=== PATIENT | female | born 1935 | race Caucasian/White ===

== ENCOUNTER 2020-02-28 19:49 | Emergency (ER) | payer BC, MEDICARE, OTHER ==
[2020-02-28] MEDS ORDERED: Lidocaine 1% 20 ML MDV INFILT ONE (19:50)
--- NOTE | 2020-02-28 20:29 | EDM.PDOC ---
ED HPI GENERAL MEDICAL PROBLEM - General Chief Complaint: Head Injury Stated Complaint: FELL & HIT HEAD Time Seen by Provider: 02/28/20 20:16 Source of Information: Reports: Patient, Family History Limitations: Reports: No Limitations - History of Present Illness INITIAL COMMENTS - FREE TEXT/NARRATIVE: Patient lost her balance and fell while carrying a jug of water. No LOC. Denies headache or neck pain. No other injuries. Last Tetanus vaccine 06/2012. Onset: Today Duration: Hour(s): (1) Location: Reports: Head Severity: Mild - Related Data Allergies Allergy/AdvReac Type Severity Reaction Status Date / Time No Known Allergies Allergy Verified 02/28/20 19:52 Home Meds: Home Meds Carbidopa/Levodopa [Carbidopa-Levodopa 25-100 Tab] 100 cap PO TID 02/28/20 [History] Past Medical History Cardiovascular History: Reports: High Cholesterol Neurological History: Reports: Neuropathy, Diabetic, Parkinson's Endocrine/Metabolic History: Reports: Diabetes, Type II Social & Family History - Tobacco Use Smoking Status *Q: Never Smoker ED ROS GENERAL - Review of Systems Review Of Systems: Comprehensive ROS is negative, except as noted in HPI. ED EXAM, HEAD INJURY - Physical Exam Exam: See Below Exam Limited By: No Limitations General Appearance: Alert, WD/WN, No Apparent Distress Head: Other (4 cm occipital scalp laceration) Eyes: Bilateral Eye: EOMI, PERRL Ears: Normal External Exam Throat/Mouth: No Airway Compromise Neck: Non-Tender Respiratory: No Respiratory Distress, Lungs Clear, Normal Breath Sounds Cardiovascular: Regular Rate, Rhythm, No Murmur GI/Abdominal Exam: Non-Tender Back Exam: Full Range of Motion Extremities: Normal Range of Motion Neurologic: No Motor/Sensory Deficits, Alert - [place] Coma Score Best Eye Response (Vijaya): (4) Open Spontaneously Best Verbal Response ([place]): (5) Oriented Best Motor Response ([place]): (6) Obeys Commands Vijaya Total: 15 ED LACERATION/WOUND & MATTHEW PROC - Laceration/Wound Repair Head Lac/wound length in cm: 4 Appearance: Subcutaneous Distal NVT: Neuro & Vascular Intact Anesthetic Type: Local Local Anesthesia - Lidocaine (Xylocaine): 1% Plain Local Anesthetic Volume: 4cc Skin Prep: Chlorhexidine (Hibiciens), Saline Saline irrigation (cc's): 20 Exploration/Debridement/Repair: No Foreign Material Found Closed with: Railroad # of Sutures: 9 Drain Placement: No Sterile Dressing Applied: Nurse Complications: No Course - Vital Signs Last Recorded V/S: Last Vital Signs Temp 37.1 C 02/28/20 19:57 Pulse 69 02/28/20 19:57 Resp 18 02/28/20 19:57 BP 183/77 H 02/28/20 19:57 Pulse Ox 98 02/28/20 19:57 - Orders/Labs/Meds Orders: Active Orders 24 hr Category Date Time Status C-Spine [Cervical Spine wo Cont] [CT] Stat Exams 02/28/20 20:02 Taken Head wo Cont [CT] Stat Exams 02/28/20 20:02 Taken - Radiology Interpretation Free Text/Narrative:: Study: CT Head -02/28/2020 8:46:41 PM Ordering Physician: Leonel Final Report: INDICATION: Trauma COMPARISON: None TECHNIQUE: CT examination of the head was performed as axial sections without intravenous contrast. Images were obtained from the vertex of the skull through the skull base. Please note that all CT scans at this facility use dose modulation, iterative reconstruction, and/or weight-based dosing when appropriate to reduce radiation dose to as low as reasonably achievable. FINDINGS: The brain shows no sign of mass lesion, mass effect, hemorrhage, or edema. There are involutional changes. There is mild cortical atrophy and there is mild white matter disease. There is no hydrocephalus. The visualized portions of the orbits are normal in appearance. The osseous structures are normal in appearance with no sign of abnormality in the skull base or calvarium. There is a subcutaneous hematoma in the right parieto-occipital area. IMPRESSION: Involutional changes. No acute intracranial posttraumatic findings. Subcutaneous hematoma in the right parieto-occipital area Please note that all CT scans at this facility use dose modulation, iterative reconstruction, and/or weight-based dosing when appropriate to reduce radiation dose to as low as reasonably achievable. Dictated by Donovan Hampton MD @ Feb 28 2020 8:56PM (Electronic Signature) Study: CT Spine Cervical -02/28/2020 8:46:20 PM Ordering Physician: Leonel Final Report: INDICATION: Trauma TECHNIQUE: CT cervical spine without contrast. COMPARISON: None FINDINGS: Vertebral alignment: Alignment is normal. Vertebrae: There are no fractures or suspicious bony lesions. Discs and facet joints: There are moderate to severe multilevel degenerative disc and facet changes Extraspinal findings: Paraspinous soft tissues are unremarkable. IMPRESSION: 1. No sign of acute injury. 2. Multilevel degenerative spondylosis. Please note that all CT scans at this facility use dose modulation, iterative reconstruction, and/or weight-based dosing when appropriate to reduce radiation dose to as low as reasonably achievable. Dictated by Donovan Hampton MD @ Feb 28 2020 8:59PM (Electronic Signature) Departure - Departure Time of Disposition: 21:01 Disposition: Home, Self-Care 01 Condition: Good Clinical Impression: Minor head injury Qualifiers: Encounter type: initial encounter Qualified Code(s): S09.90XA - Unspecified injury of head, initial encounter Occipital scalp laceration Qualifiers: Encounter type: initial encounter Qualified Code(s): S01.01XA - Laceration without foreign body of scalp, initial encounter - Discharge Information *PRESCRIPTION DRUG MONITORING PROGRAM REVIEWED*: No *COPY OF PRESCRIPTION DRUG MONITORING REPORT IN PATIENT ASHLEE: Not Applicable Instructions: Laceration Care, Adult, [id number], Sutures, Railroad, or Adhesive Wound Closure, [id number], Head Injury, Adult, [id number] Referrals: Jaylin Fall PA [Primary Care Provider] - 1 Week Forms: ED Department Discharge Additional Instructions: Follow up in 7 days for staple removal. Return to the ER with symptoms or signs of infection, or if you develop a headache or vomiting. Sepsis Event Note (ED) - Evaluation Sepsis Screening Result: No Definite Risk - Focused Exam Vital Signs: Vital Signs Temp Pulse Resp BP Pulse Ox 02/28/20 19:57 37.1 C 69 18 183/77 H 98 - My Orders Last 24 Hours: My Active Orders 02/28/20 20:02 C-Spine [Cervical Spine wo Cont] [CT] Stat Head wo Cont [CT] Stat - Assessment/Plan Last 24 Hours: My Active Orders 02/28/20 20:02 C-Spine [Cervical Spine wo Cont] [CT] Stat Head wo Cont [CT] Stat
== END 2020-02-28 21:30 | disposition home or self-care (01) ==
LOC: FB.ED 19:49
DX: S01.01XA Laceration without foreign body of scalp, initial encounter (principal); E11.40 Type 2 diabetes mellitus with diabetic neuropathy, unspecified; W01.10XA Fall on same level from slipping, tripping and stumbling with subsequent striking against unspecified object, initial encounter
CPT/HCPCS: 12002; 70450; 72125; 99283; 99283-25; J2001

== ENCOUNTER 2020-03-04 07:20 | Inpatient (IN) | payer MEDICARE, OTHER ==
--- NOTE | 2020-03-04 07:57 | EDM.PDOC ---
ED HPI GENERAL MEDICAL PROBLEM - General Chief Complaint: General Stated Complaint: WEAKNESS Time Seen by Provider: 03/04/20 07:35 Source of Information: Reports: Patient, EMS History Limitations: Reports: No Limitations - History of Present Illness INITIAL COMMENTS - FREE TEXT/NARRATIVE: Brought in by EMS from home . states she was feeling so weak at home W finding it difficult t get up and walk, called family and none answered so she called EMS Was seen in the hospital 3 warren ago for fall and pain in the hip Denies any pain in the hips but has weakness in the lower extremities Onset: Today Onset Date: 03/04/20 Duration: Hour(s):, Getting Worse Location: Reports: Lower Extremity, Right Quality: Reports: Ache, Dull Severity: Moderate Improves with: Reports: None Worsens with: Reports: Movement Context: Reports: Activity. Denies: Trauma Associated Symptoms: Reports: Weakness. Denies: Confusion, Fever/Chills, Head aches, Nausea/Vomiting, Shortness of Breath - Related Data Allergies Allergy/AdvReac Type Severity Reaction Status Date / Time No Known Allergies Allergy Verified 02/28/20 19:52 Home Meds: Home Meds Carbidopa/Levodopa [Carbidopa-Levodopa 25-100 Tab] 1 cap PO TID 02/28/20 [History] Tolterodine Tartrate [Tolterodine Tartrate ER] 2 mg PO DAILY 02/28/20 [History] Past Medical History HEENT History: Reports: Cataract Cardiovascular History: Reports: High Cholesterol Respiratory History: Reports: None Genitourinary History: Reports: None Musculoskeletal History: Reports: Other (See Below) Other Musculoskeletal History: trochanteric bursitis of both hips 09/30/2015 Neurological History: Reports: Neuropathy, Diabetic, Parkinson's Psychiatric History: Reports: None Endocrine/Metabolic History: Reports: Diabetes, Type II Hematologic History: Reports: None Immunologic History: Reports: None Oncologic (Cancer) History: Reports: None Dermatologic History: Reports: None - Past Surgical History Head Surgeries/Procedures: Reports: None HEENT Surgical History: Reports: Cataract Surgery GI Surgical History: Reports: Colonoscopy Social & Family History - Tobacco Use Smoking Status *Q: Never Smoker ED ROS GENERAL - Review of Systems Review Of Systems: See Below Constitutional: Reports: No Symptoms. Denies: Fever, Chills, Malaise, Weakness, Fatigue HEENT: Denies: Ear Discharge, Ear Pain Respiratory: Denies: Shortness of Breath, Cough, Sputum Cardiovascular: Reports: Lightheadedness, Orthopnea. Denies: Chest Pain, Dyspnea on Exertion, Edema Endocrine: Reports: No Symptoms GI/Abdominal: Reports: No Symptoms : Reports: No Symptoms Musculoskeletal: Denies: Back Pain, Hand Pain, Leg Pain, Joint Pain, Joint Swelling Skin: Denies: No Symptoms Neurological: Reports: Confusion, Dizziness, Headache Psychiatric: Reports: No Symptoms Hematologic/Lymphatic: Reports: No Symptoms Immunologic: Reports: No Symptoms ED EXAM, GENERAL - Physical Exam Exam: See Below Exam Limited By: No Limitations General Appearance: Alert, WD/WN, No Apparent Distress Eye Exam: Bilateral Eye: Abnormal EOM, EOMI Ears: Normal External Exam Nose: Normal Inspection Throat/Mouth: Normal Inspection Head: Atraumatic, Normocephalic Neck: Supple, Non-Tender, Limited Range of Motion Respiratory/Chest: No Respiratory Distress, Lungs Clear, Normal Breath Sounds Cardiovascular: Normal Peripheral Pulses, Regular Rate, Rhythm GI/Abdominal: Normal Bowel Sounds, Soft, Non-Tender Back Exam: Normal Inspection, Full Range of Motion Extremities: Normal Inspection, Normal Range of Motion, Increased Warmth. No: Limited Range of Motion Neurological: Memory Loss Remote Events, Memory Loss Recent Events, Abnormal Gait. No: Normal Gait Psychiatric: Normal Affect, Normal Mood Skin Exam: Dry, Intact Lymphatic: No Adenopathy Course - Vital Signs Last Recorded V/S: Last Vital Signs Temp 36.4 C 03/04/20 11:47 Pulse 63 03/04/20 11:47 Resp 18 03/04/20 11:47 BP 150/77 H 03/04/20 11:47 Pulse Ox 95 03/04/20 11:47 - Orders/Labs/Meds Orders: Active Orders 24 hr Category Date Time Status Patient Status Manage Transfer [TRANSFER] Routine ADT 03/04/20 09:51 Active Patient Status [ADT] Routine ADT 03/04/20 12:00 Active Ambulate [RC] ASDIRECTED Care 03/04/20 11:59 Active Intake and Output [RC] QSHIFT Care 03/04/20 12:00 Active Oxygen Therapy [RC] PRN Care 03/04/20 12:00 Active Up With Assistance [RC] ASDIRECTED Care 03/04/20 11:59 Active Up to Chair [RC] ASDIRECTED Care 03/04/20 11:59 Active VTE/DVT Education [RC] Per Unit Routine Care 03/04/20 12:00 Active Vital Signs [RC] Q4H Care 03/04/20 12:00 Active OT Evaluation and Treatment [CONS] Routine Cons 03/04/20 11:59 Active PT Evaluation and Treatment [CONS] Routine Cons 03/04/20 11:59 Active Head wo Cont [CT] Stat Exams 03/04/20 07:46 Taken CULTURE URINE [RM] Stat Lab 03/04/20 08:35 Received Enoxaparin [Lovenox] Med 03/04/20 12:00 Active 30 mg SUBCUT Q24H Sodium Chloride 0.9% [Normal Saline] 1,000 ml Med 03/04/20 08:00 Active IV ASDIRECTED Resuscitation Status Routine Resus Stat 03/04/20 09:55 Ordered Medication Orders Carbidopa/Levodopa (Sinemet 25-100 Mg) 1 tab PO TID NISHA Enoxaparin Sodium (Lovenox) 30 mg SUBCUT Q24H NISHA Sodium Chloride (Normal Saline) 1,000 mls @ 150 mls/hr IV ASDIRECTED NISHA Last Admin: 03/04/20 08:05 Dose: 150 mls/hr Documented by: JOSE Labs: Laboratory Tests 03/04/20 03/04/20 03/04/20 Range/Units 08:10 08:10 08:10 WBC 6.5 (4.5-12.0) X10-3/uL RBC 4.71 (3.23-5.20) x10(6)uL Hgb 13.9 (11.5-15.5) g/dL Hct 42.9 (30.0-51.3) % MCV 91.1 (80-96) fL MCH 29.6 (27.7-33.6) pg MCHC 32.5 (32.2-35.4) g/dL RDW 12.7 (11.5-15.5) % Plt Count 251 (125-369) X10(3)uL MPV 7.6 (7.4-10.4) fL Neut % (Auto) 68.7 (46-82) % Lymph % (Auto) 22.5 (13-37) % [place] % (Auto) 6.2 (4-12) % Eos % (Auto) 2 (1.0-5.0) % Baso % (Auto) 1 (0-2) % Neut # (Auto) 4.5 (1.6-8.3) # Lymph # (Auto) 1.5 (0.6-5.0) # [place] # (Auto) 0.4 (0.0-1.3) # Eos # (Auto) 0.1 (0.0-0.8) # Baso # (Auto) 0.0 (0.0-0.2) # Sodium 140 (135-145) mmol/L Potassium 4.2 (3.5-5.3) mmol/L Chloride 103 (100-110) mmol/L Carbon Dioxide 28 (21-32) mmol/L BUN 13 (7-18) mg/dL Creatinine 0.9 (0.55-1.02) mg/dL Est Cr Clr Drug Dosing TNP Estimated GFR (MDRD) 60 (>60) BUN/Creatinine Ratio 14.4 (9-20) Glucose 185 H (80-116) mg/dL Calcium 9.3 (8.6-10.2) mg/dL Total Bilirubin 0.7 (0.1-1.3) mg/dL AST 19 (5-25) IU/L ALT 31 (12-36) U/L Alkaline Phosphatase 111 (56-112) IU/L NT-Pro-B Natriuret Pep (<=450) pg/mL Total Protein 6.8 (6.0-8.0) g/dL Albumin 3.5 (3.2-4.6) g/dL Globulin 3.3 g/dL Albumin/Globulin Ratio 1.1 Vitamin B12 1030 H (193-986) pg/mL TSH, Ultra Sensitive 2.25 (0.36-3.74) IU/mL Urine Color (YELLOW) Urine Appearance (CLEAR) Urine pH (5.0-6.5) Ur Specific [place] (1.010-1.025) Urine Protein (NEGATIVE) mg/dL Urine Glucose (UA) (NORMAL) mg/dL Urine Ketones (NEGATIVE) mg/dL Urine Occult Blood (NEGATIVE) Urine Nitrite (NEGATIVE) Urine Bilirubin (NEGATIVE) Urine Urobilinogen (NEGATIVE) mg/dL Ur Leukocyte Esterase (NEGATIVE) Urine RBC (0-5) Urine WBC (0-5) Ur Squamous Epith Cells (NS,R,O) Urine Bacteria (NS) SARS Virus RNA (PCR) (NEGATIVE) 03/04/20 03/04/20 03/04/20 Range/Units 08:10 08:35 09:40 WBC (4.5-12.0) X10-3/uL RBC (3.23-5.20) x10(6)uL Hgb (11.5-15.5) g/dL Hct (30.0-51.3) % MCV (80-96) fL MCH (27.7-33.6) pg MCHC (32.2-35.4) g/dL RDW (11.5-15.5) % Plt Count (125-369) X10(3)uL MPV (7.4-10.4) fL Neut % (Auto) (46-82) % Lymph % (Auto) (13-37) % [place] % (Auto) (4-12) % Eos % (Auto) (1.0-5.0) % Baso % (Auto) (0-2) % Neut # (Auto) (1.6-8.3) # Lymph # (Auto) (0.6-5.0) # [place] # (Auto) (0.0-1.3) # Eos # (Auto) (0.0-0.8) # Baso # (Auto) (0.0-0.2) # Sodium (135-145) mmol/L Potassium (3.5-5.3) mmol/L Chloride (100-110) mmol/L Carbon Dioxide (21-32) mmol/L BUN (7-18) mg/dL Creatinine (0.55-1.02) mg/dL Est Cr Clr Drug Dosing Estimated GFR (MDRD) (>60) BUN/Creatinine Ratio (9-20) Glucose (80-116) mg/dL Calcium (8.6-10.2) mg/dL Total Bilirubin (0.1-1.3) mg/dL AST (5-25) IU/L ALT (12-36) U/L Alkaline Phosphatase (56-112) IU/L NT-Pro-B Natriuret Pep 131 (<=450) pg/mL Total Protein (6.0-8.0) g/dL Albumin (3.2-4.6) g/dL Globulin g/dL Albumin/Globulin Ratio Vitamin B12 (193-986) pg/mL TSH, Ultra Sensitive (0.36-3.74) IU/mL Urine Color Yellow (YELLOW) Urine Appearance Slightly cloudy (CLEAR) Urine pH 6.5 (5.0-6.5) Ur Specific [place] 1.015 (1.010-1.025) Urine Protein Negative (NEGATIVE) mg/dL Urine Glucose (UA) Normal (NORMAL) mg/dL Urine Ketones Negative (NEGATIVE) mg/dL Urine Occult Blood Negative (NEGATIVE) Urine Nitrite Negative (NEGATIVE) Urine Bilirubin Negative (NEGATIVE) Urine Urobilinogen Normal (NEGATIVE) mg/dL Ur Leukocyte Esterase Negative (NEGATIVE) Urine RBC 0-5 (0-5) Urine WBC 0-5 (0-5) Ur Squamous Epith Cells Occasional (NS,R,O) Urine Bacteria Many H (NS) SARS Virus RNA (PCR) Negative (NEGATIVE) Meds: Medications Generic Name Dose Route Start Last Admin Trade Name Freq PRN Reason Stop Dose Admin Carbidopa/Levodopa 1 tab 03/04/20 14:00 Sinemet 25-100 Mg PO TID [facility] Enoxaparin Sodium 30 mg 03/04/20 12:00 Lovenox SUBCUT Q24H [facility] Sodium Chloride 1,000 mls @ 150 mls/hr 03/04/20 08:00 03/04/20 08:05 Normal Saline IV 150 mls/hr ASDIRECTED [facility] Administration - Re-Assessments/Exams Free Text/Narrative Re-Assessment/Exam: 03/04/20 12:23 pt reassessed and recommended for admission Departure - Departure Time of Disposition: 11:45 Disposition: Admitted As Inpatient 68 Clinical Impression: Generalized weakness, Abnormality of gait and mobility Minor head injury Qualifiers: Encounter type: initial encounter Qualified Code(s): S09.90XA - Unspecified injury of head, initial encounter - Discharge Information *PRESCRIPTION DRUG MONITORING PROGRAM REVIEWED*: Not Applicable *COPY OF PRESCRIPTION DRUG MONITORING REPORT IN PATIENT ASHLEE: Not Applicable Sepsis Event Note (ED) - Evaluation Sepsis Screening Result: No Definite Risk - Focused Exam Vital Signs: Vital Signs Temp Pulse Resp BP Pulse Ox 03/04/20 11:47 36.4 C 63 18 150/77 H 95 03/04/20 07:27 36.5 C 62 18 161/66 H 95 - My Orders Last 24 Hours: My Active Orders 03/04/20 07:46 Head wo Cont [CT] Stat 03/04/20 08:00 Sodium Chloride 0.9% [Normal Saline] 1,000 ml IV ASDIRECTED 03/04/20 08:35 CULTURE URINE [RM] Stat 03/04/20 09:51 Patient Status Manage Transfer [TRANSFER] Routine 03/04/20 09:55 Resuscitation Status Routine - Assessment/Plan Last 24 Hours: My Active Orders 03/04/20 07:46 Head wo Cont [CT] Stat 03/04/20 08:00 Sodium Chloride 0.9% [Normal Saline] 1,000 ml IV ASDIRECTED 03/04/20 08:35 CULTURE URINE [RM] Stat 03/04/20 09:51 Patient Status Manage Transfer [TRANSFER] Routine 03/04/20 09:55 Resuscitation Status Routine
[2020-03-04] MEDS: Sodium Chloride 0.9% 1,000 ML IV SCH ×3 (08:05→22:36)
[2020-03-04] MEDS: Carbidopa/Levodopa 25-100 MG Tab PO SCH ×2 (13:40→20:43)
[2020-03-04] MEDS: Enoxaparin 30 MG/0.3 ML Syringe SUBCUT SCH (13:40)
--- NOTE | 2020-03-04 16:31 | HP ---
ADMISSION DATE: 03/04/2020 REASON FOR ADMISSION: Weakness, recurrent falls. HISTORY OF PRESENT ILLNESS: Shannon Coyne is an 85-year-old female, admitted through [facility]. Had been seen last Monday for a fall and struck her head on the stool. Progressive weakness and disability. Does have Parkinson's, under medical treatment. Last couple of days though more troublesome, been sitting, inactive, unable to walk, unable to do the things she needs to be self-sufficient. Lives with her in their own home, though stated to have great difficulties, had a stroke and an HI, but still a more aligned and is self- sufficient enough to be alone. Weakness was the problematic issue. Was transferred by EMS. PRESENT HOME MEDICATIONS: Include carbidopa-levodopa 25-100 one p.o. b.i.d. ALLERGIES: No known allergies. PAST MEDICAL HISTORY: Significant for previous vein surgery. She is 7, postmenopausal female. Chronic illnesses include Parkinson's only and problematic bladder control issues. No other major operative procedures, hospitalizations, unusual childhood diseases, major injuries, or fractures. SOCIAL HISTORY: Lives with her independently in their home. 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 Has had 5 children, 1 daughter of leukemia, 1 stillborn male child. Three living children. Nonsmoker. No alcohol. No illicit drug use. No vaping. No chewing. Alcohol absent. FAMILY HISTORY: Noncontributory. REVIEW OF SYSTEMS: CONSTITUTIONAL: General weakness and fatigue. EYES: Sees well. Corrective eyeglasses. EARS: Hears well, no implication. OROPHARYNX: Intact dentition. No loose teeth. CARDIOVASCULAR: No chest pain, palpitations, syncope. RESPIRATORY: No chronic cough. GASTROINTESTINAL: Regular predictable stools. No blood in stools. GENITOURINARY: Bladder control an issue. No blood in urine. ORTHOPEDIC: Generalized joint complaints. NEUROLOGIC: Presenting symptoms. SKIN: No lesions, eruptions, or moles. ENDOCRINE: No excessive thirst or urination. ALLERGIES: None. PHYSICAL EXAMINATION: VITAL SIGNS: 36.5, 62, 161/66, 18, and 95. GENERAL: Soft spoken, a bit dysarthric suddenly, and unintelligible speech. HEENT: Conjunctivae clear. Bright tympanic membranes. Clear nasal discharge. Mouth and oropharynx clear. Tongue midline. Good gag reflex. NECK: Benign. Thyroid small. CHEST: On auscultation, clear in all lung duggan. HEART: On auscultation, no ectopy or murmur. BREASTS: Deferred. ABDOMEN: Benign. No surgical scars. No hepatosplenomegaly. GENITOURINARY AND RECTAL: Deferred. EXTREMITIES: Well perfused. SKIN: No eruptions or moles. Mild varicosities. LABORATORY STUDIES: White count 6500, hemoglobin 13.9, normal indices, platelets 251,000. Electrolytes were satisfactory, random glucose 185. Liver enzymes satisfactory. Vitamin B12 of 10.30. TSH 2.25. Urinalysis was clear. ASSESSMENT: Complicated weakness, sequelae of Parkinson's. PLAN: We will obtain some other laboratory tests to assess well-being. IV fluids and intervention, expectations from there. PT, OT consultation. Medications were reviewed and appropriate, continued as timely. /[id number] EPHRAIM/TIMOTHY
[2020-03-04] MEDS ORDERED: Carbidopa/Levodopa 25-100 MG Tab PO SCH (16:47)
[2020-03-04] MEDS: Tolterodine 2 MG Cap.ER PO SCH (20:43)
[2020-03-05] MEDS: Sodium Chloride 0.9% 1,000 ML IV SCH (05:20)
[2020-03-05] MEDS: Carbidopa/Levodopa 25-100 MG Tab PO SCH ×3 (08:01→20:06)
[2020-03-05] MEDS: Tolterodine 2 MG Cap.ER PO SCH (08:01)
--- NOTE | 2020-03-05 11:29 | PN ---
DATE SEEN: 03/05/2020 SUBJECTIVE: Shannon Coyne is an 85-year-old female admitted with just general malaise. Feel likely exacerbation of her Parkinson's. Diagnostic studies unremarkable. CBC unremarkable. Sedimentation rate 5 and glucose 175. COVID negative. Treatment for Parkinson's is very limited, Sinemet only. OBJECTIVE: VITAL SIGNS: 36.4, 70, 173/70, 18, and 96%. GENERAL: Appears comfortable. Speech is a bit gaited and dysarthric. NEUROLOGIC: No focal neurological findings. EXTREMITIES: A bit of tightness to range of motion of her extremities. Gait was not tested. CHEST: Clear in all lung duggan. HEART: No ectopy or murmur. ABDOMEN: Benign. ASSESSMENT: Complicated weakness. PLAN: PT/OT, intervention and care, may need further management in addition to her Parkinson's disease. /[id number] EPHRAIM/TIMOTHY BATES
[2020-03-05] MEDS: Enoxaparin 30 MG/0.3 ML Syringe SUBCUT SCH (12:05)
[2020-03-06] MEDS: Carbidopa/Levodopa 25-100 MG Tab PO SCH (08:00)
[2020-03-06] MEDS: Tolterodine 2 MG Cap.ER PO SCH (08:01)
--- NOTE | 2020-03-06 11:04 | DISCH ---
DISCHARGE DATE: 03/06/2020 REASON FOR ADMISSION: 1. Fall. 2. Weakness. 3. Parkinson disease. 4. Female incontinence. BRIEF HISTORY: An 85-year-old who was brought in after she complains of feeling weak. She had previously fallen and sustained a laceration to the scalp. CT of the head was negative for any intracranial bleed, but she was too weak to return home. She spent 2 days here and has regained her strength and she is ready to return home today. She will go home on her usual home prescriptions of Detrol LA 2 mg daily and carbidopa 1 tablet t.i.d. She will go home with home health and follow up with PCP next week. /[id number] RADHA/TIMOTHY
[2020-03-09 20:10] LABS: A/G RATIO 1.3 (0.7-1.7); ALBUMIN 3.4 g/dL (2.9-4.4); ALPHA-1-GLOBULIN 0.2 g/dL (0.0-0.4); ALPHA-2-GLOBULIN 0.8 g/dL (0.4-1.0); GAMMA GLOBULIN 0.7 g/dL (0.4-1.8); GLOBULIN, TOTAL 2.7 g/dL (2.2-3.9); M-SPIKE Not Observed g/dL (Not Observed); PROTEIN, TOTAL, SERUM 6.1 g/dL (6.0-8.5)
== END 2020-03-06 11:25 | disposition home health service (06) | DRG 948 ==
LOC: FB.ED 07:20 → FB.MS 09:51 → INTOOBSV 12:00 → OBSVTOIN 12:00
PROVIDERS: ADMIT Family Medicine; ATTEND Family Medicine
DX: R53.1 Weakness (principal); R63.1 Polydipsia; R26.9 Unspecified abnormalities of gait and mobility; S01.01XA Laceration without foreign body of scalp, initial encounter; S09.90XD Unspecified injury of head, subsequent encounter; E11.42 Type 2 diabetes mellitus with diabetic polyneuropathy; W19.XXXD Unspecified fall, subsequent encounter; R32 Unspecified urinary incontinence; R29.6 Repeated falls; G20 Parkinson's disease; W19.XXXA Unspecified fall, initial encounter; E78.00 Pure hypercholesterolemia, unspecified; E11.40 Type 2 diabetes mellitus with diabetic neuropathy, unspecified; Z98.49 Cataract extraction status, unspecified eye; Z79.899 Other long term (current) drug therapy; Z20.828 Contact with and (suspected) exposure to other viral communicable diseases
CPT/HCPCS: 70450; 96360; 96361; 99285; 99283; 85025; 85651; 81001; 36415; 80053; 82550; 83880; 82607; 86140; 84443; 87086; J7030; U0002; G0378; 82962; 84165; 97161-GP; 97165-GO; 99221; 99231; 99238; A9270-GY; J1650

== ENCOUNTER 2020-04-08 12:18 | Inpatient (IN) | payer MEDICARE, OTHER ==
[2020-04-08] MEDS: Sodium Chloride 0.9% 10 ML Syringe FLUSH PRN (12:45)
[2020-04-08] MEDS ORDERED: Sodium Chloride 0.9% 1,000 ML IV SCH (14:15)
--- NOTE | 2020-04-08 15:21 | CT ---
INDICATION: Fall, injury. CT HEAD WITHOUT CONTRAST: Spiral 2.5 mm axial sections were obtained through the brain without contrast with sagittal, coronal and axial reconstructions 04/08/20 and compared with 03/04/20. Total exam DLP was 1322.30 mGy-cm. No cranial fracture site is noted. Paranasal sinuses and mastoid air cells are well aerated. The orbits appear to be intact. Internal carotid artery calcifications are again noted. No shift of midline structures is seen. White matter changes are again noted compatible with microvascular disease, although other cause of leukoencephalopathy cannot be excluded. A definite acute intracranial abnormality was not identified - no bleeding site or hematoma was seen. Ventricles are prominent compatible with central atrophy. Cortical sulci are fairly normal for age. IMPRESSION: 1. Cerebrovascular disease with arterial calcifications and a mild degree of microvascular disease type changes in the white matter. 2. No acute intracranial abnormality. 3. Central atrophy. Report was called to Dr. Barron at 1330 hours. [facility]
--- NOTE | 2020-04-08 15:28 | CR ---
INDICATION: Fall, left hip pain. LEFT HIP AND PELVIS: Frontal view of the pelvis with frontal and lateral views of the left hip were obtained 04/08/20 - no comparison. Somewhat demineralized appearance suggests osteoporosis - correlate clinically. Mild hypertrophic degenerative changes noted at the right hip joint with very minimal loss of craniolateral joint space at the right hip joint space. Sacroiliac joints appear to be intact with mild degenerative change at the right sacroiliac joint. Degenerative changes, disk disease and scoliosis are noted in the visualized lumbosacral spine. An acute fracture or dislocation was not identified with special attention to the left hip. IMPRESSION: 1. No acute fracture or dislocation. 2. Demineralization compatible with osteoporosis. 3. Osteoarthritis as noted above. Report called to Dr. Barron at 1330 hours. [facility]
--- NOTE | 2020-04-08 15:31 | CR ---
INDICATION: Fall, pain left elbow. LEFT ELBOW: Three views of the left elbow were obtained 04/08/20 - no comparisons. There are some minimal degenerative changes at the medial elbow joint compartment. Joint spaces appear to be well maintained at the elbow. An acute fracture, dislocation, or other acute bone or joint abnormality, was not identified. Report called to Dr. Barron at 1332 hours. [facility]
--- NOTE | 2020-04-08 15:36 | EDM.PDOC ---
ED HPI GENERAL MEDICAL PROBLEM - General Chief Complaint: Upper Extremity Injury/Pain Stated Complaint: DIZZYNESS, FALL Time Seen by Provider: 04/08/20 12:25 Source of Information: Reports: Patient, Family History Limitations: Reports: Other (dementia) - History of Present Illness INITIAL COMMENTS - FREE TEXT/NARRATIVE: Patient presented to the ED via EMS because of a recent fall. Patient was feeling weak, her legs gave out and fell on the bath room. She was unable to get up on her own. She c/o left RUE and left hip pain. There is no LOC after the fall. There is no chest pain,N/V/D, no cough/cold, fever or chills. - Related Data Allergies Allergy/AdvReac Type Severity Reaction Status Date / Time No Known Allergies Allergy Verified 02/28/20 19:52 Home Meds: Home Meds Carbidopa/Levodopa [Carbidopa-Levodopa 25-100 Tab] 1 cap PO TID 02/28/20 [History] Tolterodine Tartrate [Tolterodine Tartrate ER] 2 mg PO DAILY 02/28/20 [History] Past Medical History HEENT History: Reports: Cataract Cardiovascular History: Reports: High Cholesterol Respiratory History: Reports: None Genitourinary History: Reports: None Musculoskeletal History: Reports: Other (See Below) Other Musculoskeletal History: trochanteric bursitis of both hips 09/30/2015 Neurological History: Reports: Neuropathy, Diabetic, Parkinson's Psychiatric History: Reports: None Endocrine/Metabolic History: Reports: Diabetes, Type II Hematologic History: Reports: None Immunologic History: Reports: None Oncologic (Cancer) History: Reports: None Dermatologic History: Reports: None - Past Surgical History Head Surgeries/Procedures: Reports: None HEENT Surgical History: Reports: Cataract Surgery GI Surgical History: Reports: Colonoscopy Social & Family History - Family History Family Medical History: Noncontributory - Tobacco Use Smoking Status *Q: Unknown Ever Smoked - Caffeine Use Caffeine Use: Reports: Coffee, Soda - Recreational Drug Use Recreational Drug Use: No Review of Systems - Review of Systems Review Of Systems: See Below Constitutional: Reports: No Symptoms Ears: Reports: No Symptoms Nose: Reports: No Symptoms Mouth/Throat: Reports: No Symptoms Respiratory: Reports: No Symptoms Cardiovascular: Reports: No Symptoms GI/Abdominal: Reports: No Symptoms Genitourinary: Reports: No Symptoms Musculoskeletal: Reports: No Symptoms Skin: Reports: No Symptoms Neurological: Reports: No Symptoms ED EXAM, GENERAL - Physical Exam Exam: See Below Exam Limited By: No Limitations General Appearance: Alert, No Apparent Distress Ears: Normal External Exam, Normal Canal Nose: Normal Inspection, Normal Mucosa, No Blood Throat/Mouth: Normal Inspection, Normal Lips, Normal Teeth Head: Atraumatic, Normocephalic Neck: Normal Inspection, Supple, Non-Tender, Full Range of Motion Respiratory/Chest: No Respiratory Distress, Lungs Clear, Normal Breath Sounds Cardiovascular: Normal Peripheral Pulses, Regular Rate, Rhythm, No Edema, No Gallop GI/Abdominal: Normal Bowel Sounds, Soft, Non-Tender, No Organomegaly Back Exam: Normal Inspection, Full Range of Motion Extremities: Normal Inspection, Normal Range of Motion, Non-Tender Neurological: Alert, Oriented, CN II-XII Intact, Normal Cognition, Normal Gait Course - Vital Signs Text/Narrative:: Labs/EKG/Xray results,Head CT was discussed with patient and her [id number] Elevated trop x2- discussed with them the need to see a intelligence officer in [place] but patient and her [id number] just want medical management for now without any intervention. ASA 325 mg PO x1 Last Recorded V/S: Last Vital Signs Temp 36.5 C 04/08/20 12:20 Pulse 79 04/08/20 12:20 Resp 18 04/08/20 12:20 BP 158/63 H 04/08/20 12:20 Pulse Ox 95 04/08/20 12:20 - Orders/Labs/Meds Orders: Active Orders 24 hr Category Date Time Status Patient Status [ADT] Routine ADT 04/08/20 15:47 Ordered Cardiac Monitoring [RC] CONTINUOUS Care 04/08/20 15:50 Ordered EKG Documentation Completion [RC] ASDIRECTED Care 04/08/20 12:25 Active Height and Weight [RC] DAILY Care 04/08/20 15:47 Ordered Intake and Output [RC] QSHIFT Care 04/08/20 15:50 Ordered Oxygen Therapy [RC] PRN Care 04/08/20 15:47 Ordered Pulse Oximetry [RC] PRN Care 04/08/20 15:50 Ordered Up With Assistance [RC] ASDIRECTED Care 04/08/20 15:47 Ordered VTE/DVT Education [RC] Per Unit Routine Care 04/08/20 15:47 Ordered Vital Signs [RC] Q4H Care 04/08/20 15:47 Ordered PT Evaluation and Treatment [CONS] Routine Cons 04/08/20 15:47 Ordered Heart Healthy Diet [DIET] Diet 04/08/20 Dinner Ordered BASIC METABOLIC PANEL,BMP [CHEM] AM Lab 04/09/20 05:11 Ordered CBC WITH AUTO DIFF [HEME] AM Lab 04/09/20 05:11 Ordered CULTURE BLOOD [BC] Urgent Lab 04/08/20 14:40 Received CULTURE BLOOD [BC] Urgent Lab 04/08/20 14:50 Received CULTURE URINE [RM] Stat Lab 04/08/20 15:44 Ordered Carbidopa/Levodopa [Sinemet 25-100 mg] Med 04/08/20 21:00 Ordered 1 cap PO TID Docusate Sodium/Sennosides [Senna Plus] Med 04/08/20 15:47 Ordered 1 tab PO BID PRN Enoxaparin [Lovenox] Med 04/08/20 16:00 Ordered 40 mg SUBCUT Q24H Ondansetron [Zofran] Med 04/08/20 15:47 Ordered 4 mg IV Q4H PRN Sodium Chloride 0.9% [Normal Saline] 1,000 ml Med 04/08/20 14:15 Active IV ASDIRECTED Sodium Chloride 0.9% [Saline Flush] Med 04/08/20 12:24 Active 10 ml FLUSH ASDIRECTED PRN Blood Culture x2 Reflex Set [OM.PC] Urgent Oth 04/08/20 13:57 Ordered Saline Lock Insert [OM.PC] Routine Oth 04/08/20 12:24 Ordered Resuscitation Status Routine Resus Stat 04/08/20 15:47 Ordered EKG 12 Lead [EK] Routine Ther 04/08/20 12:24 Ordered Medication Orders Carbidopa/Levodopa (Sinemet 25-100 Mg) tab PO TID NISHA Enoxaparin Sodium (Lovenox) 40 mg SUBCUT Q24H NISHA Sodium Chloride (Normal Saline) 1,000 mls @ 999 mls/hr IV ASDIRECTED NISHA Last Admin: 04/08/20 14:59 Dose: 999 mls/hr Documented by: DEVANTE Ondansetron HCl (Zofran) 4 mg IV Q4H PRN PRN Reason: Nausea/Vomiting Senna/Docusate Sodium (Senna Plus) 1 tab PO BID PRN PRN Reason: Constipation Sodium Chloride (Saline Flush) 10 ml FLUSH ASDIRECTED PRN PRN Reason: Keep Vein Open Last Admin: 04/08/20 12:45 Dose: 10 ml Documented by: NISHI Labs: Laboratory Tests 04/08/20 04/08/20 04/08/20 Range/Units 12:46 12:46 12:53 WBC 15.9 H (4.5-12.0) X10-3/uL RBC 4.84 (3.23-5.20) x10(6)uL Hgb 14.7 (11.5-15.5) g/dL Hct 43.4 (30.0-51.3) % MCV 89.7 (80-96) fL MCH 30.5 (27.7-33.6) pg MCHC 33.9 (32.2-35.4) g/dL RDW 12.4 (11.5-15.5) % Plt Count 243 (125-369) X10(3)uL MPV 7.7 (7.4-10.4) fL Add Manual Diff Yes Neutrophils % (Manual) 88 H (46-82) % Band Neutrophils % 1 (0-6) % Lymphocytes % (Manual) 8 L (13-37) % Monocytes % (Manual) 3 L (4-12) % PT 10.4 (9.0-11.1) sec INR 0.96 L (1.00-1.24) APTT 24.7 (24.4-33.2) SECONDS Sodium (135-145) mmol/L Potassium (3.5-5.3) mmol/L Chloride (100-110) mmol/L Carbon Dioxide (21-32) mmol/L BUN (7-18) mg/dL Creatinine (0.55-1.02) mg/dL Est Cr Clr Drug Dosing Estimated GFR (MDRD) (>60) BUN/Creatinine Ratio (9-20) Glucose (80-116) mg/dL Lactic Acid 1.7 (0.4-2.0) mmol/L Calcium (8.6-10.2) mg/dL Total Bilirubin (0.1-1.3) mg/dL AST (5-25) IU/L ALT (12-36) U/L Alkaline Phosphatase (56-112) IU/L Creatine Kinase (60-160) IU/L Troponin I (4.0-60.3) pg/mL Total Protein (6.0-8.0) g/dL Albumin (3.2-4.6) g/dL Globulin g/dL Albumin/Globulin Ratio Urine Color (YELLOW) Urine Appearance (CLEAR) Urine pH (5.0-6.5) Ur Specific [place] (1.010-1.025) Urine Protein (NEGATIVE) mg/dL Urine Glucose (UA) (NORMAL) mg/dL Urine Ketones (NEGATIVE) mg/dL Urine Occult Blood (NEGATIVE) Urine Nitrite (NEGATIVE) Urine Bilirubin (NEGATIVE) Urine Urobilinogen (NEGATIVE) mg/dL Ur Leukocyte Esterase (NEGATIVE) Urine WBC (0-5) Ur Squamous Epith Cells (NS,R,O) Urine Bacteria (NS) SARS Virus RNA (PCR) (NEGATIVE) 04/08/20 04/08/20 04/08/20 Range/Units 12:53 12:53 14:15 WBC (4.5-12.0) X10-3/uL RBC (3.23-5.20) x10(6)uL Hgb (11.5-15.5) g/dL Hct (30.0-51.3) % MCV (80-96) fL MCH (27.7-33.6) pg MCHC (32.2-35.4) g/dL RDW (11.5-15.5) % Plt Count (125-369) X10(3)uL MPV (7.4-10.4) fL Add Manual Diff Neutrophils % (Manual) (46-82) % Band Neutrophils % (0-6) % Lymphocytes % (Manual) (13-37) % Monocytes % (Manual) (4-12) % PT (9.0-11.1) sec INR (1.00-1.24) APTT (24.4-33.2) SECONDS Sodium 136 (135-145) mmol/L Potassium 3.8 (3.5-5.3) mmol/L Chloride 101 (100-110) mmol/L Carbon Dioxide 26 (21-32) mmol/L BUN 15 (7-18) mg/dL Creatinine 1.0 (0.55-1.02) mg/dL Est Cr Clr Drug Dosing TNP Estimated GFR (MDRD) 53 L (>60) BUN/Creatinine Ratio 15.0 (9-20) Glucose 193 H (80-116) mg/dL Lactic Acid (0.4-2.0) mmol/L Calcium 9.3 (8.6-10.2) mg/dL Total Bilirubin 0.6 (0.1-1.3) mg/dL AST 27 H D (5-25) IU/L ALT 34 (12-36) U/L Alkaline Phosphatase 113 H (56-112) IU/L Creatine Kinase 453 H* (60-160) IU/L Troponin I 71.6 H* (4.0-60.3) pg/mL Total Protein 6.7 (6.0-8.0) g/dL Albumin 3.5 (3.2-4.6) g/dL Globulin 3.2 g/dL Albumin/Globulin Ratio 1.1 Urine Color Yellow (YELLOW) Urine Appearance Slightly cloudy (CLEAR) Urine pH 6.0 (5.0-6.5) Ur Specific [place] 1.015 (1.010-1.025) Urine Protein Negative (NEGATIVE) mg/dL Urine Glucose (UA) Normal (NORMAL) mg/dL Urine Ketones 15 H (NEGATIVE) mg/dL Urine Occult Blood Negative (NEGATIVE) Urine Nitrite Negative (NEGATIVE) Urine Bilirubin Negative (NEGATIVE) Urine Urobilinogen Normal (NEGATIVE) mg/dL Ur Leukocyte Esterase Negative (NEGATIVE) Urine WBC 30-40 H (0-5) Ur Squamous Epith Cells Occasional (NS,R,O) Urine Bacteria Many H (NS) SARS Virus RNA (PCR) (NEGATIVE) 04/08/20 04/08/20 Range/Units 14:40 14:55 WBC (4.5-12.0) X10-3/uL RBC (3.23-5.20) x10(6)uL Hgb (11.5-15.5) g/dL Hct (30.0-51.3) % MCV (80-96) fL MCH (27.7-33.6) pg MCHC (32.2-35.4) g/dL RDW (11.5-15.5) % Plt Count (125-369) X10(3)uL MPV (7.4-10.4) fL Add Manual Diff Neutrophils % (Manual) (46-82) % Band Neutrophils % (0-6) % Lymphocytes % (Manual) (13-37) % Monocytes % (Manual) (4-12) % PT (9.0-11.1) sec INR (1.00-1.24) APTT (24.4-33.2) SECONDS Sodium (135-145) mmol/L Potassium (3.5-5.3) mmol/L Chloride (100-110) mmol/L Carbon Dioxide (21-32) mmol/L BUN (7-18) mg/dL Creatinine (0.55-1.02) mg/dL Est Cr Clr Drug Dosing Estimated GFR (MDRD) (>60) BUN/Creatinine Ratio (9-20) Glucose (80-116) mg/dL Lactic Acid (0.4-2.0) mmol/L Calcium (8.6-10.2) mg/dL Total Bilirubin (0.1-1.3) mg/dL AST (5-25) IU/L ALT (12-36) U/L Alkaline Phosphatase (56-112) IU/L Creatine Kinase (60-160) IU/L Troponin I 119.0 H* (4.0-60.3) pg/mL Total Protein (6.0-8.0) g/dL Albumin (3.2-4.6) g/dL Globulin g/dL Albumin/Globulin Ratio Urine Color (YELLOW) Urine Appearance (CLEAR) Urine pH (5.0-6.5) Ur Specific [place] (1.010-1.025) Urine Protein (NEGATIVE) mg/dL Urine Glucose (UA) (NORMAL) mg/dL Urine Ketones (NEGATIVE) mg/dL Urine Occult Blood (NEGATIVE) Urine Nitrite (NEGATIVE) Urine Bilirubin (NEGATIVE) Urine Urobilinogen (NEGATIVE) mg/dL Ur Leukocyte Esterase (NEGATIVE) Urine WBC (0-5) Ur Squamous Epith Cells (NS,R,O) Urine Bacteria (NS) SARS Virus RNA (PCR) Negative (NEGATIVE) Meds: Medications Generic Name Dose Route Start Last Admin Trade Name Freq PRN Reason Stop Dose Admin Carbidopa/Levodopa tab 04/08/20 21:00 Sinemet 25-100 Mg PO TID NISHA Enoxaparin Sodium 40 mg 04/08/20 16:00 Lovenox SUBCUT Q24H NISHA Sodium Chloride 1,000 mls @ 999 mls/hr 04/08/20 14:15 04/08/20 14:59 Normal Saline IV 999 mls/hr ASDIRECTED NISHA Administration Ondansetron HCl 4 mg 04/08/20 15:47 Zofran IV Q4H PRN Nausea/Vomiting Senna/Docusate Sodium 1 tab 04/08/20 15:47 Senna Plus PO BID PRN Constipation Sodium Chloride 10 ml 04/08/20 12:24 04/08/20 12:45 Saline Flush FLUSH 10 ml ASDIRECTED PRN Administration Keep Vein Open Discontinued Medications Generic Name Dose Route Start Last Admin Trade Name Freq PRN Reason Stop Dose Admin Aspirin 324 mg 04/08/20 15:37 04/08/20 15:42 Aspirin PO 04/08/20 15:38 324 mg ONETIME ONE Administration Ceftriaxone Sodium 1 gm/ 50 mls @ 200 mls/hr 04/08/20 15:37 04/08/20 15:45 Sodium Chloride IV 04/08/20 15:51 200 mls/hr NOW STA Administration Departure - Departure Time of Disposition: 16:30 Disposition: Admitted As Inpatient 68 Condition: Good Clinical Impression: Weakness, Fall, Acute coronary syndrome, UTI (urinary tract infection), Rhabdomyolysis - Discharge Information Referrals: Tahmina Phillips, [employer] [Primary Care Provider] - Forms: ED Department Discharge Sepsis Event Note (ED) - Evaluation Sepsis Screening Result: No Definite Risk - Focused Exam Vital Signs: Vital Signs Temp Pulse Resp BP Pulse Ox 04/08/20 12:20 36.5 C 79 18 158/63 H 95 - My Orders Last 24 Hours: My Active Orders 04/08/20 12:24 Sodium Chloride 0.9% [Saline Flush] 10 ml FLUSH ASDIRECTED PRN Saline Lock Insert [OM.PC] Routine EKG 12 Lead [EK] Routine 04/08/20 12:25 EKG Documentation Completion [RC] ASDIRECTED 04/08/20 13:57 Blood Culture x2 Reflex Set [OM.PC] Urgent 04/08/20 14:15 Sodium Chloride 0.9% [Normal Saline] 1,000 ml IV ASDIRECTED 04/08/20 14:40 CULTURE BLOOD [BC] Urgent 04/08/20 14:50 CULTURE BLOOD [BC] Urgent 04/08/20 15:44 CULTURE URINE [RM] Stat 04/08/20 15:47 Patient Status [ADT] Routine Height and Weight [RC] DAILY Oxygen Therapy [RC] PRN Up With Assistance [RC] ASDIRECTED VTE/DVT Education [RC] Per Unit Routine Vital Signs [RC] Q4H PT Evaluation and Treatment [CONS] Routine Docusate Sodium/Sennosides [Senna Plus] 1 tab PO BID PRN Ondansetron [Zofran] 4 mg IV Q4H PRN Resuscitation Status Routine 04/08/20 15:50 Cardiac Monitoring [RC] CONTINUOUS Intake and Output [RC] QSHIFT Pulse Oximetry [RC] PRN 04/08/20 16:00 Enoxaparin [Lovenox] 40 mg SUBCUT Q24H 04/08/20 Dinner Heart Healthy Diet [DIET] 04/08/20 21:00 Carbidopa/Levodopa [Sinemet 25-100 mg] 1 cap PO TID 04/09/20 05:11 BASIC METABOLIC PANEL,BMP [CHEM] AM CBC WITH AUTO DIFF [HEME] AM - Assessment/Plan Last 24 Hours: My Active Orders 04/08/20 12:24 Sodium Chloride 0.9% [Saline Flush] 10 ml FLUSH ASDIRECTED PRN Saline Lock Insert [OM.PC] Routine EKG 12 Lead [EK] Routine 04/08/20 12:25 EKG Documentation Completion [RC] ASDIRECTED 04/08/20 13:57 Blood Culture x2 Reflex Set [OM.PC] Urgent 04/08/20 14:15 Sodium Chloride 0.9% [Normal Saline] 1,000 ml IV ASDIRECTED 04/08/20 14:40 CULTURE BLOOD [BC] Urgent 04/08/20 14:50 CULTURE BLOOD [BC] Urgent 04/08/20 15:44 CULTURE URINE [RM] Stat 04/08/20 15:47 Patient Status [ADT] Routine Height and Weight [RC] DAILY Oxygen Therapy [RC] PRN Up With Assistance [RC] ASDIRECTED VTE/DVT Education [RC] Per Unit Routine Vital Signs [RC] Q4H PT Evaluation and Treatment [CONS] Routine Docusate Sodium/Sennosides [Senna Plus] 1 tab PO BID PRN Ondansetron [Zofran] 4 mg IV Q4H PRN Resuscitation Status Routine 04/08/20 15:50 Cardiac Monitoring [RC] CONTINUOUS Intake and Output [RC] QSHIFT Pulse Oximetry [RC] PRN 04/08/20 16:00 Enoxaparin [Lovenox] 40 mg SUBCUT Q24H 04/08/20 Dinner Heart Healthy Diet [DIET] 04/08/20 21:00 Carbidopa/Levodopa [Sinemet 25-100 mg] 1 cap PO TID 04/09/20 05:11 BASIC METABOLIC PANEL,BMP [CHEM] AM CBC WITH AUTO DIFF [HEME] AM
[2020-04-08] MEDS ORDERED: cefTRIAXone 1 GM in Sodium Chloride 0.9% 50 ML IV STA (15:37)
[2020-04-08] MEDS ORDERED: Aspirin 81 MG Tab.Chew PO ONE (15:37)
--- NOTE | 2020-04-08 15:41 | CR ---
INDICATION: Elevated WBC. CHEST ONE VIEW: An AP upright portable view of the chest was obtained 04/08/20 - no comparison. The heart is normal in size and shape. The aorta is tortuous with calcification in the arch. Overlying EKG leads and snap noted. An active infiltrate or effusion was not identified. IMPRESSION: No acute process. MTDD
[2020-04-08] MEDS ORDERED: Ondansetron 4 MG/2 ML SDV IVPUSH PRN (15:47)
[2020-04-08] MEDS: Sodium Chloride 0.9% 1,000 ML IV SCH (16:15)
[2020-04-08] MEDS ORDERED: Nitroglycerin 0.4 MG Tab.SL SL PRN (16:25)
--- NOTE | 2020-04-08 16:49 | PCM.HP.2 ---
H&P History of Present Illness - General Date of Service: 04/08/20 Admit Problem/Dx: Admission Diagnosis/Problem Admission Diagnosis/Problem Acute coronary syndrome, UTI, Weakness with fall Source of Information: Patient, EMS Notes Reviewed - History of Present Illness Initial Comments - Free Text/Narative: Shannon was brought in by EMS after sustaining a fall at home today, has bilateral elbow & hip pain. States she was weak, legs went out and fell to bathroom floor. Tried to get up herself as her is also elderly and didn't think he could help her get up. No fevers, chills, runny nose, sore throat, cough, shortness of breath, chest pain. No abdominal pain, nausea, vomiting, diarrhea or c onstipation. No dysuria or frequency. Has incontinence used to wear a pad but now wears a brief. She has Parkinson's and Diabetes. Takes an herbal supplement twice a day for her Diabetes, Sinemet and Tolterodine. ER workup showed elevated WBC 15.9, Covid negative. Elbow and hip x-ray were negative for fracture. Lactic acid normal range. Troponin was slightly elevated at 76.1, repeat was 119, dina l range 4-60. Shannon and her family did not want to be transferred to [place] for cardiac intervention, wanted to stay at [place] for medical management. CPK was 453. Urine & blood culture pending. Onset of Symptoms: Reports: Today Left Elbow Pain Score (Numeric/FACES): 2 - Related Data Allergies/Adverse Reactions: Allergies Allergy/AdvReac Type Severity Reaction Status Date / Time No Known Allergies Allergy Verified 02/28/20 19:52 Home Medications: Home Meds Carbidopa/Levodopa [Carbidopa-Levodopa 25-100 Tab] 1 tab PO TID 02/28/20 [History] Tolterodine Tartrate [Tolterodine Tartrate ER] 2 mg PO DAILY 02/28/20 [History] Past Medical History HEENT History: Reports: Cataract Cardiovascular History: Reports: High Cholesterol Respiratory History: Reports: None Genitourinary History: Reports: None Musculoskeletal History: Reports: Other (See Below) Other Musculoskeletal History: trochanteric bursitis of both hips 09/30/2015 Neurological History: Reports: Neuropathy, Diabetic, Parkinson's Psychiatric History: Reports: None Endocrine/Metabolic History: Reports: Diabetes, Type II Hematologic History: Reports: None Immunologic History: Reports: None Oncologic (Cancer) History: Reports: None Dermatologic History: Reports: None - Past Surgical History Head Surgeries/Procedures: Reports: None HEENT Surgical History: Reports: Cataract Surgery GI Surgical History: Reports: Colonoscopy Social & Family History - Family History Family Medical History: Noncontributory - Tobacco Use Smoking Status *Q: Unknown Ever Smoked - Caffeine Use Caffeine Use: Reports: None - Recreational Drug Use Recreational Drug Use: No H&P Review of Systems - Review of Systems: Review Of Systems: Comprehensive ROS is negative, except as noted in HPI. Exam - Exam Exam: See Below - Vital Signs Vital Signs: Last Vital Signs Temp 97.7 F 04/08/20 12:20 Pulse 79 04/08/20 12:20 Resp 18 04/08/20 12:20 BP 179/75 H 04/08/20 16:14 Pulse Ox 95 04/08/20 12:20 Weight: 166 lb 8 oz - Exam General: Alert, Oriented, Cooperative. No: Mild Distress HEENT: PERRLA, Conjunctiva Clear, EACs Clear, EOMI, Hearing Intact, Mucosa Moist & [place], Normal Nasal Septum, Posterior Pharynx Clear Neck: Supple, Trachea Midline. No: Lymphadenopathy, Carotid Bruit Lungs: Clear to Auscultation, Normal Respiratory Effort, Other (no chest wall tenderness) Cardiovascular: Regular Rate, Regular Rhythm GI/Abdominal Exam: Normal Bowel Sounds, Soft, Non-Tender, No Distention (Female) Exam: Deferred Rectal (Female) Exam: Deferred Back Exam: Normal Inspection Extremities: No Pedal Edema Skin: Ecchymosis (right & left elbow, left wrist) Neuro Extensive - Motor, Sensory, Reflexes: CN II-XII Intact. No: Tremor - Patient Data Lab Results Last 24 hrs: Laboratory Results - last 24 hr 04/08/20 04/08/20 04/08/20 Range/Units 12:46 12:46 12:53 WBC 15.9 H (4.5-12.0) X10-3/uL RBC 4.84 (3.23-5.20) x10(6)uL Hgb 14.7 (11.5-15.5) g/dL Hct 43.4 (30.0-51.3) % MCV 89.7 (80-96) fL MCH 30.5 (27.7-33.6) pg MCHC 33.9 (32.2-35.4) g/dL RDW 12.4 (11.5-15.5) % Plt Count 243 (125-369) X10(3)uL MPV 7.7 (7.4-10.4) fL Add Manual Diff Yes Neutrophils % (Manual) 88 H (46-82) % Band Neutrophils % 1 (0-6) % Lymphocytes % (Manual) 8 L (13-37) % Monocytes % (Manual) 3 L (4-12) % PT 10.4 (9.0-11.1) sec INR 0.96 L (1.00-1.24) APTT 24.7 (24.4-33.2) SECONDS Sodium (135-145) mmol/L Potassium (3.5-5.3) mmol/L Chloride (100-110) mmol/L Carbon Dioxide (21-32) mmol/L BUN (7-18) mg/dL Creatinine (0.55-1.02) mg/dL Est Cr Clr Drug Dosing Estimated GFR (MDRD) (>60) BUN/Creatinine Ratio (9-20) Glucose (80-116) mg/dL Lactic Acid 1.7 (0.4-2.0) mmol/L Calcium (8.6-10.2) mg/dL Total Bilirubin (0.1-1.3) mg/dL AST (5-25) IU/L ALT (12-36) U/L Alkaline Phosphatase (56-112) IU/L Creatine Kinase (60-160) IU/L Troponin I (4.0-60.3) pg/mL Total Protein (6.0-8.0) g/dL Albumin (3.2-4.6) g/dL Globulin g/dL Albumin/Globulin Ratio Urine Color (YELLOW) Urine Appearance (CLEAR) Urine pH (5.0-6.5) Ur Specific [place] (1.010-1.025) Urine Protein (NEGATIVE) mg/dL Urine Glucose (UA) (NORMAL) mg/dL Urine Ketones (NEGATIVE) mg/dL Urine Occult Blood (NEGATIVE) Urine Nitrite (NEGATIVE) Urine Bilirubin (NEGATIVE) Urine Urobilinogen (NEGATIVE) mg/dL Ur Leukocyte Esterase (NEGATIVE) Urine WBC (0-5) Ur Squamous Epith Cells (NS,R,O) Urine Bacteria (NS) SARS Virus RNA (PCR) (NEGATIVE) 04/08/20 04/08/20 04/08/20 Range/Units 12:53 12:53 14:15 WBC (4.5-12.0) X10-3/uL RBC (3.23-5.20) x10(6)uL Hgb (11.5-15.5) g/dL Hct (30.0-51.3) % MCV (80-96) fL MCH (27.7-33.6) pg MCHC (32.2-35.4) g/dL RDW (11.5-15.5) % Plt Count (125-369) X10(3)uL MPV (7.4-10.4) fL Add Manual Diff Neutrophils % (Manual) (46-82) % Band Neutrophils % (0-6) % Lymphocytes % (Manual) (13-37) % Monocytes % (Manual) (4-12) % PT (9.0-11.1) sec INR (1.00-1.24) APTT (24.4-33.2) SECONDS Sodium 136 (135-145) mmol/L Potassium 3.8 (3.5-5.3) mmol/L Chloride 101 (100-110) mmol/L Carbon Dioxide 26 (21-32) mmol/L BUN 15 (7-18) mg/dL Creatinine 1.0 (0.55-1.02) mg/dL Est Cr Clr Drug Dosing TNP Estimated GFR (MDRD) 53 L (>60) BUN/Creatinine Ratio 15.0 (9-20) Glucose 193 H (80-116) mg/dL Lactic Acid (0.4-2.0) mmol/L Calcium 9.3 (8.6-10.2) mg/dL Total Bilirubin 0.6 (0.1-1.3) mg/dL AST 27 H D (5-25) IU/L ALT 34 (12-36) U/L Alkaline Phosphatase 113 H (56-112) IU/L Creatine Kinase 453 H* (60-160) IU/L Troponin I 71.6 H* (4.0-60.3) pg/mL Total Protein 6.7 (6.0-8.0) g/dL Albumin 3.5 (3.2-4.6) g/dL Globulin 3.2 g/dL Albumin/Globulin Ratio 1.1 Urine Color Yellow (YELLOW) Urine Appearance Slightly cloudy (CLEAR) Urine pH 6.0 (5.0-6.5) Ur Specific [place] 1.015 (1.010-1.025) Urine Protein Negative (NEGATIVE) mg/dL Urine Glucose (UA) Normal (NORMAL) mg/dL Urine Ketones 15 H (NEGATIVE) mg/dL Urine Occult Blood Negative (NEGATIVE) Urine Nitrite Negative (NEGATIVE) Urine Bilirubin Negative (NEGATIVE) Urine Urobilinogen Normal (NEGATIVE) mg/dL Ur Leukocyte Esterase Negative (NEGATIVE) Urine WBC 30-40 H (0-5) Ur Squamous Epith Cells Occasional (NS,R,O) Urine Bacteria Many H (NS) SARS Virus RNA (PCR) (NEGATIVE) 04/08/20 04/08/20 Range/Units 14:40 14:55 WBC (4.5-12.0) X10-3/uL RBC (3.23-5.20) x10(6)uL Hgb (11.5-15.5) g/dL Hct (30.0-51.3) % MCV (80-96) fL MCH (27.7-33.6) pg MCHC (32.2-35.4) g/dL RDW (11.5-15.5) % Plt Count (125-369) X10(3)uL MPV (7.4-10.4) fL Add Manual Diff Neutrophils % (Manual) (46-82) % Band Neutrophils % (0-6) % Lymphocytes % (Manual) (13-37) % Monocytes % (Manual) (4-12) % PT (9.0-11.1) sec INR (1.00-1.24) APTT (24.4-33.2) SECONDS Sodium (135-145) mmol/L Potassium (3.5-5.3) mmol/L Chloride (100-110) mmol/L Carbon Dioxide (21-32) mmol/L BUN (7-18) mg/dL Creatinine (0.55-1.02) mg/dL Est Cr Clr Drug Dosing Estimated GFR (MDRD) (>60) BUN/Creatinine Ratio (9-20) Glucose (80-116) mg/dL Lactic Acid (0.4-2.0) mmol/L Calcium (8.6-10.2) mg/dL Total Bilirubin (0.1-1.3) mg/dL AST (5-25) IU/L ALT (12-36) U/L Alkaline Phosphatase (56-112) IU/L Creatine Kinase (60-160) IU/L Troponin I 119.0 H* (4.0-60.3) pg/mL Total Protein (6.0-8.0) g/dL Albumin (3.2-4.6) g/dL Globulin g/dL Albumin/Globulin Ratio Urine Color (YELLOW) Urine Appearance (CLEAR) Urine pH (5.0-6.5) Ur Specific [place] (1.010-1.025) Urine Protein (NEGATIVE) mg/dL Urine Glucose (UA) (NORMAL) mg/dL Urine Ketones (NEGATIVE) mg/dL Urine Occult Blood (NEGATIVE) Urine Nitrite (NEGATIVE) Urine Bilirubin (NEGATIVE) Urine Urobilinogen (NEGATIVE) mg/dL Ur Leukocyte Esterase (NEGATIVE) Urine WBC (0-5) Ur Squamous Epith Cells (NS,R,O) Urine Bacteria (NS) SARS Virus RNA (PCR) Negative (NEGATIVE) Result Diagrams: 04/08/20 12:53 04/08/20 12:53 Sepsis Event Note - Evaluation Sepsis Screening Result: No Definite Risk - Focused Exam Vital Signs: Vital Signs Temp Pulse Resp BP Pulse Ox 04/08/20 16:14 179/75 H 04/08/20 15:45 170/66 H 04/08/20 15:30 171/62 H 04/08/20 15:15 167/69 H 04/08/20 12:20 97.7 F 79 18 158/63 H 95 Date Exam was Performed: 04/08/20 Time Exam was Performed: 17:00 *Q Meaningful Use (ADM) - VTE Risk Assess *Q Each Risk Factor Represents 1 Point: Acute myocardial infarction Total Score 1 Point Risk Factors: 1 Each Risk Factor Represents 3 Points: Age 75 Years or Greater Total Score 3 Point Risk Factors: 3 - AMI *Q Thrombolytic/Fibrinolytic Contraindications IV (AMI) *Q: Med/tx not indicated/need - Problem List (1) Acute coronary syndrome SNOMED Code(s): 271746660 ICD Code: I24.9 - ACUTE ISCHEMIC HEART DISEASE, UNSPECIFIED Status: Acute Current Visit: Yes (2) Fall SNOMED Code(s): 6331465, 263092190 ICD Code: W19.XXXA - UNSPECIFIED FALL, INITIAL ENCOUNTER Status: Acute Current Visit: Yes (3) Generalized weakness SNOMED Code(s): 90790183 ICD Code: R53.1 - WEAKNESS Status: Acute Current Visit: Yes (4) UTI (urinary tract infection) SNOMED Code(s): 17405950 ICD Code: N39.0 - URINARY TRACT INFECTION, SITE NOT SPECIFIED Status: Acute Current Visit: Yes (5) Parkinson disease SNOMED Code(s): 11764139 ICD Code: G20 - PARKINSON'S DISEASE Status: Chronic Current Visit: Yes (6) Diabetes SNOMED Code(s): 64465774 ICD Code: E11.9 - TYPE 2 DIABETES MELLITUS WITHOUT COMPLICATIONS Status: Chronic Current Visit: Yes Qualifiers: Diabetes mellitus type: type 2 Diabetes mellitus alf insulin use: without alf use (7) Incontinence of urine in female SNOMED Code(s): 820405400, 108294838 ICD Code: R32 - UNSPECIFIED URINARY INCONTINENCE Status: Chronic Current Visit: Yes Problem List Initiated/Reviewed/Updated: Yes Orders Last 24hrs: Active Orders 24 hr Category Date Time Status Patient Status [ADT] Routine ADT 04/08/20 15:47 Active Cardiac Monitoring [RC] CONTINUOUS Care 04/08/20 15:50 Active EKG Documentation Completion [RC] ASDIRECTED Care 04/08/20 12:25 Active Height and Weight [RC] DAILY Care 04/08/20 15:47 Active Intake and Output [RC] QSHIFT Care 04/08/20 15:50 Active Oxygen Therapy [RC] PRN Care 04/08/20 15:47 Active Pulse Oximetry [RC] PRN Care 04/08/20 15:50 Active Up With Assistance [RC] ASDIRECTED Care 04/08/20 15:47 Active VTE/DVT Education [RC] Per Unit Routine Care 04/08/20 15:47 Active Vital Signs [RC] Q4H Care 04/08/20 15:47 Active OT Evaluation and Treatment [CONS] Routine Cons 04/08/20 16:27 Active PT Evaluation and Treatment [CONS] Routine Cons 04/08/20 15:47 Active Consistent Carbohydrate Diet [DIET] Diet 04/08/20 Dinner Ordered BASIC METABOLIC PANEL,BMP [CHEM] AM Lab 04/09/20 05:11 Ordered CBC WITH AUTO DIFF [HEME] AM Lab 04/09/20 05:11 Ordered CULTURE BLOOD [BC] Urgent Lab 04/08/20 14:40 Received CULTURE BLOOD [BC] Urgent Lab 04/08/20 14:50 Received CULTURE URINE [RM] Stat Lab 04/08/20 14:15 Received TROPONIN I [CHEM] Routine Lab 04/09/20 06:00 Ordered Carbidopa/Levodopa [Sinemet 25-100 mg] Med 04/08/20 21:00 Active 1 tab PO TID Docusate Sodium/Sennosides [Senna Plus] Med 04/08/20 15:47 Active 1 tab PO BID PRN Enoxaparin [Lovenox] Med 04/08/20 16:30 Active 40 mg SUBCUT Q24H Nitroglycerin [Nitrostat] Med 04/08/20 16:25 Active 0.4 mg SL Q5M PRN Ondansetron [Zofran] Med 04/08/20 15:47 Active 4 mg IVPUSH Q4H PRN Sodium Chloride 0.9% [Normal Saline] 1,000 ml Med 04/08/20 14:15 Active IV ASDIRECTED Sodium Chloride 0.9% [Normal Saline] 1,000 ml Med 04/08/20 16:15 Active IV ASDIRECTED Sodium Chloride 0.9% [Saline Flush] Med 04/08/20 12:24 Active 10 ml FLUSH ASDIRECTED PRN Tolterodine [Detrol LA 24 Hr] Med 04/09/20 09:00 Ordered 2 mg PO DAILY lisinopriL [Prinivil] Med 04/08/20 16:30 Active 10 mg PO DAILY Blood Culture x2 Reflex Set [OM.PC] Urgent Oth 04/08/20 13:57 Ordered Saline Lock Insert [OM.PC] Routine Oth 04/08/20 12:24 Ordered Resuscitation Status Routine Resus Stat 04/08/20 15:47 Ordered EKG 12 Lead [EK] Routine Ther 04/08/20 12:24 Ordered Medication Orders Carbidopa/Levodopa (Sinemet 25-100 Mg) 1 tab PO TID NISHA Enoxaparin Sodium (Lovenox) 40 mg SUBCUT Q24H NISHA Sodium Chloride (Normal Saline) 1,000 mls @ 999 mls/hr IV ASDIRECTED [facility] Last Admin: 04/08/20 14:59 Dose: 999 mls/hr Documented by: DEVANTE Sodium Chloride (Normal Saline) 1,000 mls @ 100 mls/hr IV ASDIRECTED [facility] Lisinopril (Prinivil) 10 mg PO DAILY NISHA Nitroglycerin (Nitrostat) 0.4 mg SL Q5M PRN PRN Reason: Chest Pain Ondansetron HCl (Zofran) 4 mg IVPUSH Q4H PRN PRN Reason: Nausea/Vomiting Senna/Docusate Sodium (Senna Plus) 1 tab PO BID PRN PRN Reason: Constipation Sodium Chloride (Saline Flush) 10 ml FLUSH ASDIRECTED PRN PRN Reason: Keep Vein Open Last Admin: 04/08/20 12:45 Dose: 10 ml Documented by: NISHI Assessment/Plan Comment:: 1. Admit for medical management of Acute coronary syndrome, UTI, weakness with fall. 2. ACS: Lisinopril 10 mg po daily, Lovenox 40 mg sq q24h, Nitro 0.4 SL q5min as needed. Lipid panel in the am. Aspirin 325 mg given in ER. 3. UTI: Rocephin 1 gram IV q24h, urine culture pending. WBC 15.9, repeat labs tomorrow. 4. DM: consistent carb diet, accucheck in am. On a herbal supplement at home, did not bring with her but wants to stay on it. Will have family bring in so pharmacy can review. 5. Parkinson's: continue Sinemet. 6. Fall: PT/OT evaluate & treat. 7. DVT: Lovenox & TEDs. 8. DNR. 9. Will adjust treatments as necessary. - Mortality Measure Prognosis:: Poor
[2020-04-08] MEDS: Enoxaparin 40 MG/0.4 ML Syringe SUBCUT SCH (17:23)
[2020-04-08] MEDS: Lisinopril 10 MG Tab PO SCH (17:23)
[2020-04-08] MEDS: Carbidopa/Levodopa 25-100 MG Tab PO SCH (21:53)
[2020-04-09] MEDS: Acetaminophen 325 MG Tab PO PRN (01:46)
[2020-04-09] MEDS: Sodium Chloride 0.9% 1,000 ML IV SCH (02:29)
[2020-04-09] MEDS: Tolterodine 2 MG Cap.ER PO SCH (08:43)
[2020-04-09] MEDS: Lisinopril 10 MG Tab PO SCH (08:43)
[2020-04-09] MEDS: Carbidopa/Levodopa 25-100 MG Tab PO SCH ×3 (08:46→20:24)
--- NOTE | 2020-04-09 14:37 | PCM.PN ---
- General Info Date of Service: 04/09/20 Subjective Update: Shannon feeling better today, no chest pain or shortness of breath; she is sore from falling yesterday. PT/OT evaluated, recommended Home Health with therapies. She does have [employer] at home but didn't think she could get it wet so didn't have it in the bathroom. They had to take door off to get to her because of where she fell. Telemetry: normal sinus since placed with occasional single PVCs. No nausea, vomiting, diarrhea. - Patient Data Vitals - Most Recent: Last Vital Signs Temp 97.8 F 04/09/20 08:45 Pulse 74 04/09/20 08:45 Resp 18 04/09/20 08:45 BP 152/56 H 04/09/20 08:45 Pulse Ox 96 04/09/20 08:45 Weight - Most Recent: 166 lb 8 oz I&O - Last 24 Hours: Intake & Output 04/08/20 04/09/20 04/09/20 22:59 06:59 14:59 Intake Total 1200 1225 Output Total 250 Balance 950 1225 Lab Results Last 24 Hours: Laboratory Results - last 24 hr 04/08/20 04/08/20 04/08/20 Range/Units 12:46 14:15 14:40 WBC (4.5-12.0) X10-3/uL RBC (3.23-5.20) x10(6)uL Hgb (11.5-15.5) g/dL Hct (30.0-51.3) % MCV (80-96) fL MCH (27.7-33.6) pg MCHC (32.2-35.4) g/dL RDW (11.5-15.5) % Plt Count (125-369) X10(3)uL MPV (7.4-10.4) fL Neut % (Auto) (46-82) % Lymph % (Auto) (13-37) % Teton % (Auto) (4-12) % Eos % (Auto) (1.0-5.0) % Baso % (Auto) (0-2) % Neut # (Auto) (1.6-8.3) # Lymph # (Auto) (0.6-5.0) # Teton # (Auto) (0.0-1.3) # Eos # (Auto) (0.0-0.8) # Baso # (Auto) (0.0-0.2) # PT 10.4 (9.0-11.1) sec INR 0.96 L (1.00-1.24) APTT 24.7 (24.4-33.2) SECONDS Sodium (135-145) mmol/L Potassium (3.5-5.3) mmol/L Chloride (100-110) mmol/L Carbon Dioxide (21-32) mmol/L BUN (7-18) mg/dL Creatinine (0.55-1.02) mg/dL Est Cr Clr Drug Dosing mL/min Estimated GFR (MDRD) (>60) BUN/Creatinine Ratio (9-20) Glucose (80-116) mg/dL Calcium (8.6-10.2) mg/dL Troponin I 119.0 H* (4.0-60.3) pg/mL Triglycerides (15-150) mg/dL Cholesterol (50-200) mg/dL LDL Cholesterol Direct (60-130) mg/dL HDL Cholesterol (40-75) mg/dL Cholesterol/HDL Ratio (0-5) Urine Color Yellow (YELLOW) Urine Appearance Slightly cloudy (CLEAR) Urine pH 6.0 (5.0-6.5) Ur Specific Napoleon 1.015 (1.010-1.025) Urine Protein Negative (NEGATIVE) mg/dL Urine Glucose (UA) Normal (NORMAL) mg/dL Urine Ketones 15 H (NEGATIVE) mg/dL Urine Occult Blood Negative (NEGATIVE) Urine Nitrite Negative (NEGATIVE) Urine Bilirubin Negative (NEGATIVE) Urine Urobilinogen Normal (NEGATIVE) mg/dL Ur Leukocyte Esterase Negative (NEGATIVE) Urine WBC 30-40 H (0-5) Ur Squamous Epith Cells Occasional (NS,R,O) Urine Bacteria Many H (NS) SARS Virus RNA (PCR) (NEGATIVE) 04/08/20 04/09/20 04/09/20 Range/Units 14:55 06:40 06:40 WBC 9.0 (4.5-12.0) X10-3/uL RBC 4.42 (3.23-5.20) x10(6)uL Hgb 13.3 (11.5-15.5) g/dL Hct 39.9 (30.0-51.3) % MCV 90.3 (80-96) fL MCH 30.0 (27.7-33.6) pg MCHC 33.3 (32.2-35.4) g/dL RDW 12.6 (11.5-15.5) % Plt Count 224 (125-369) X10(3)uL MPV 7.4 (7.4-10.4) fL Neut % (Auto) 65.3 (46-82) % Lymph % (Auto) 25.5 (13-37) % Teton % (Auto) 7.1 (4-12) % Eos % (Auto) 2 (1.0-5.0) % Baso % (Auto) 0 (0-2) % Neut # (Auto) 5.9 (1.6-8.3) # Lymph # (Auto) 2.3 (0.6-5.0) # Teton # (Auto) 0.6 (0.0-1.3) # Eos # (Auto) 0.2 (0.0-0.8) # Baso # (Auto) 0.0 (0.0-0.2) # PT (9.0-11.1) sec INR (1.00-1.24) APTT (24.4-33.2) SECONDS Sodium 139 (135-145) mmol/L Potassium 4.0 (3.5-5.3) mmol/L Chloride 106 D (100-110) mmol/L Carbon Dioxide 24 (21-32) mmol/L BUN 13 (7-18) mg/dL Creatinine 0.9 (0.55-1.02) mg/dL Est Cr Clr Drug Dosing 47.78 mL/min Estimated GFR (MDRD) 60 (>60) BUN/Creatinine Ratio 14.4 (9-20) Glucose 170 H (80-116) mg/dL Calcium 8.3 L (8.6-10.2) mg/dL Troponin I (4.0-60.3) pg/mL Triglycerides (15-150) mg/dL Cholesterol (50-200) mg/dL LDL Cholesterol Direct (60-130) mg/dL HDL Cholesterol (40-75) mg/dL Cholesterol/HDL Ratio (0-5) Urine Color (YELLOW) Urine Appearance (CLEAR) Urine pH (5.0-6.5) Ur Specific Napoleon (1.010-1.025) Urine Protein (NEGATIVE) mg/dL Urine Glucose (UA) (NORMAL) mg/dL Urine Ketones (NEGATIVE) mg/dL Urine Occult Blood (NEGATIVE) Urine Nitrite (NEGATIVE) Urine Bilirubin (NEGATIVE) Urine Urobilinogen (NEGATIVE) mg/dL Ur Leukocyte Esterase (NEGATIVE) Urine WBC (0-5) Ur Squamous Epith Cells (NS,R,O) Urine Bacteria (NS) SARS Virus RNA (PCR) Negative (NEGATIVE) 04/09/20 04/09/20 Range/Units 06:40 06:40 WBC (4.5-12.0) X10-3/uL RBC (3.23-5.20) x10(6)uL Hgb (11.5-15.5) g/dL Hct (30.0-51.3) % MCV (80-96) fL MCH (27.7-33.6) pg MCHC (32.2-35.4) g/dL RDW (11.5-15.5) % Plt Count (125-369) X10(3)uL MPV (7.4-10.4) fL Neut % (Auto) (46-82) % Lymph % (Auto) (13-37) % [place] % (Auto) (4-12) % Eos % (Auto) (1.0-5.0) % Baso % (Auto) (0-2) % Neut # (Auto) (1.6-8.3) # Lymph # (Auto) (0.6-5.0) # [place] # (Auto) (0.0-1.3) # Eos # (Auto) (0.0-0.8) # Baso # (Auto) (0.0-0.2) # PT (9.0-11.1) sec INR (1.00-1.24) APTT (24.4-33.2) SECONDS Sodium (135-145) mmol/L Potassium (3.5-5.3) mmol/L Chloride (100-110) mmol/L Carbon Dioxide (21-32) mmol/L BUN (7-18) mg/dL Creatinine (0.55-1.02) mg/dL Est Cr Clr Drug Dosing mL/min Estimated GFR (MDRD) (>60) BUN/Creatinine Ratio (9-20) Glucose (80-116) mg/dL Calcium (8.6-10.2) mg/dL Troponin I 54.3 (4.0-60.3) pg/mL Triglycerides 91 (15-150) mg/dL Cholesterol 160 (50-200) mg/dL LDL Cholesterol Direct 99 (60-130) mg/dL HDL Cholesterol 47 (40-75) mg/dL Cholesterol/HDL Ratio 3.4 (0-5) Urine Color (YELLOW) Urine Appearance (CLEAR) Urine pH (5.0-6.5) Ur Specific Napoleon (1.010-1.025) Urine Protein (NEGATIVE) mg/dL Urine Glucose (UA) (NORMAL) mg/dL Urine Ketones (NEGATIVE) mg/dL Urine Occult Blood (NEGATIVE) Urine Nitrite (NEGATIVE) Urine Bilirubin (NEGATIVE) Urine Urobilinogen (NEGATIVE) mg/dL Ur Leukocyte Esterase (NEGATIVE) Urine WBC (0-5) Ur Squamous Epith Cells (NS,R,O) Urine Bacteria (NS) SARS Virus RNA (PCR) (NEGATIVE) Med Orders - Current: Current Medications Acetaminophen (Tylenol) 650 mg PO Q4H PRN PRN Reason: Headache Last Admin: 04/09/20 01:46 Dose: 650 mg Documented by: Carbidopa/Levodopa (Sinemet 25-100 Mg) 1 tab PO TID [facility] Last Admin: 04/09/20 13:54 Dose: 1 tab Documented by: Ceftriaxone Sodium (Rocephin) 1 gm IVPUSH Q24H [facility] Enoxaparin Sodium (Lovenox) 40 mg SUBCUT Q24H [facility] Last Admin: 04/08/20 17:23 Dose: 40 mg Documented by: Sodium Chloride (Normal Saline) 1,000 mls @ 999 mls/hr IV ASDIRECTED [facility] Last Admin: 04/08/20 14:59 Dose: 999 mls/hr Documented by: Sodium Chloride (Normal Saline) 1,000 mls @ 100 mls/hr IV ASDIRECTED [facility] Last Admin: 04/09/20 02:29 Dose: 100 mls/hr Documented by: Lisinopril (Prinivil) 10 mg PO DAILY [facility] Last Admin: 04/09/20 08:43 Dose: 10 mg Documented by: Nitroglycerin (Nitrostat) 0.4 mg SL Q5M PRN PRN Reason: Chest Pain Ondansetron HCl (Zofran) 4 mg IVPUSH Q4H PRN PRN Reason: Nausea/Vomiting Senna/Docusate Sodium (Senna Plus) 1 tab PO BID PRN PRN Reason: Constipation Sodium Chloride (Saline Flush) 10 ml FLUSH ASDIRECTED PRN PRN Reason: Keep Vein Open Last Admin: 04/08/20 12:45 Dose: 10 ml Documented by: Tolterodine Tartrate (Detrol La 24 Hr) 2 mg PO DAILY [facility] Last Admin: 04/09/20 08:43 Dose: 2 mg Documented by: Discontinued Medications Aspirin (Aspirin) 324 mg PO ONETIME ONE Stop: 04/08/20 15:38 Last Admin: 04/08/20 15:42 Dose: 324 mg Documented by: Ceftriaxone Sodium 1 gm/ (Sodium Chloride) 50 mls @ 200 mls/hr IV NOW STA Stop: 04/08/20 15:51 Last Admin: 04/08/20 15:45 Dose: 200 mls/hr Documented by: - Exam General: Alert, Cooperative, No Acute Distress Lungs: Clear to Auscultation, Normal Respiratory Effort Cardiovascular: Regular Rate, Regular Rhythm GI/Abdominal Exam: Normal Bowel Sounds, Soft, Non-Tender, No Distention Extremities: No Pedal Edema Skin: Ecchymosis (bilateral elbows, left wrist.) Psy/Mental Status: Normal Affect Sepsis Event Note - Evaluation Sepsis Screening Result: No Definite Risk - Focused Exam Vital Signs: Vital Signs Temp Pulse Resp BP BP Pulse Ox 04/09/20 08:45 97.8 F 74 18 152/56 H 96 04/09/20 08:43 152/56 H Date Exam was Performed: 04/09/20 Time Exam was Performed: 14:31 - Problem List & Annotations (1) Acute coronary syndrome SNOMED Code(s): 802370104 Code(s): I24.9 - ACUTE ISCHEMIC HEART DISEASE, UNSPECIFIED Status: Acute Current Visit: Yes Annotation/Comment:: Troponin down from 119 to 54.3. Lipid panel was well controlled, LDL 99. Lovenox, Lisinopril daily and Nitro as needed. (2) Fall SNOMED Code(s): 4526267, 037378135 Code(s): W19.XXXA - UNSPECIFIED FALL, INITIAL ENCOUNTER Status: Acute Current Visit: Yes Annotation/Comment:: PT/OT recommended home health with services, also to use [employer] which is able to get wet. (3) Generalized weakness SNOMED Code(s): 85063559 Code(s): R53.1 - WEAKNESS Status: Acute Current Visit: Yes (4) UTI (urinary tract infection) SNOMED Code(s): 44376517 Code(s): N39.0 - URINARY TRACT INFECTION, SITE NOT SPECIFIED Status: Acute Current Visit: Yes Annotation/Comment:: WBC down to 9.0 today. UC pending. Continue Rocephin 1 g daily. (5) Parkinson disease SNOMED Code(s): 87821266 Code(s): G20 - PARKINSON'S DISEASE Status: Chronic Current Visit: Yes (6) Diabetes SNOMED Code(s): 00475940 Code(s): E11.9 - TYPE 2 DIABETES MELLITUS WITHOUT COMPLICATIONS Status: Chronic Current Visit: Yes Qualifiers: Diabetes mellitus type: type 2 Diabetes mellitus care home insulin use: without extermination inspector use (7) Incontinence of urine in female SNOMED Code(s): 949530425, 713879590 Code(s): R32 - UNSPECIFIED URINARY INCONTINENCE Status: Chronic Current Visit: Yes - Problem List Review Problem List Initiated/Reviewed/Updated: Yes - My Orders Last 24 Hours: My Active Orders 04/08/20 Dinner Consistent Carbohydrate Diet [DIET] 04/08/20 16:25 Nitroglycerin [Nitrostat] 0.4 mg SL Q5M PRN 04/08/20 16:27 OT Evaluation and Treatment [CONS] Routine 04/08/20 16:30 lisinopriL [Prinivil] 10 mg PO DAILY 04/09/20 01:31 Acetaminophen [Tylenol] 650 mg PO Q4H PRN 04/09/20 09:00 Tolterodine [Detrol LA 24 Hr] 2 mg PO DAILY 04/09/20 13:32 Discontinue Telemetry Monitoring [Cardiac Monitoring Discontinue] [RC] Click to Edit 04/09/20 16:00 cefTRIAXone [Rocephin] 1 gm IVPUSH Q24H - Plan Plan:: 1. ACS: Lisinopril 10 mg po daily, Lovenox 40 mg sq q24h, Nitro 0.4 SL q5min as needed. Lipid panel, well controlled. 3. UTI: Rocephin 1 gram IV q24h, urine culture pending. WBC 9.0 down from 15.9. Saline lock, good oral intake. 4. DM: consistent carb diet, accucheck in bid. On a herbal supplement at home, did not bring with her but wants to stay on it. Will have family bring in so pharmacy can review. 5. Parkinson's: continue Sinemet. 6. Fall: PT/OT evaluate & treat. Home health with services at discharge. 7. DVT: Lovenox & TEDs.
[2020-04-09] MEDS ORDERED: cefTRIAXone 1 GM Vial IVPUSH SCH (16:00)
[2020-04-09] MEDS: Sodium Chloride 0.9% 10 ML Syringe FLUSH PRN (16:28)
[2020-04-09] MEDS: Enoxaparin 40 MG/0.4 ML Syringe SUBCUT SCH (16:28)
[2020-04-10] MEDS: Acetaminophen 325 MG Tab PO PRN (00:44)
[2020-04-10] MEDS: Carbidopa/Levodopa 25-100 MG Tab PO SCH (09:08)
[2020-04-10] MEDS: Tolterodine 2 MG Cap.ER PO SCH (09:08)
[2020-04-10] MEDS: Lisinopril 10 MG Tab PO SCH (09:08)
--- NOTE | 2020-04-10 10:33 | PCM.DCSUM1 ---
Discharge Summary - Hospital Course HPI Initial Comments: Shannon was brought in by EMS after sustaining a fall at home today, has bilateral elbow & hip pain. States she was weak, legs went out and fell to bathroom floor. Tried to get up herself as her is also elderly and didn't think he could help her get up. No fevers, chills, runny nose, sore throat, cough, shortness of breath, chest pain. No abdominal pain, nausea, vomiting, diarrhea or constipation. No dysuria or frequency. Has incontinence used to wear a pad but now wears a brief. She has Parkinson's and Diabetes. Takes an herbal supplement twice a day for her Diabetes, Sinemet and Tolterodine. ER workup showed elevated WBC 15.9, Covid negative. Elbow and hip x-ray were negative for fracture. Lactic acid normal range. Troponin was slightly elevated at 76.1, repeat was 119, normal range 4-60. Shannon and her family did not want to be transferred to [facility] for cardiac intervention, wanted to stay at [facility] for medical management. CPK was 453. Urine & blood culture pending. Diagnosis: Stroke: No - Discharge Data Discharge Date: 04/10/20 ([facility]) Discharge Disposition: Home, Home Health Agency 06 Condition: Good - Referral to Home Health Date of Face to Face Encounter: 04/10/20 Reason for Homebound Status: Parkinson's Primary Care Physician: Tahmina Phillips NP or Dr Pike Skilled Need: PT/OT. nursing - Discharge Diagnosis/Problem(s) (1) Acute coronary syndrome SNOMED Code(s): 115486144 ICD Code: I24.9 - ACUTE ISCHEMIC HEART DISEASE, UNSPECIFIED Status: Acute Current Visit: Yes Problem Details: Troponin down from 119 to 54.3. Lipid panel was well controlled, LDL 99. Aspirin, Lisinopril daily and Nitro as needed. (2) Fall SNOMED Code(s): 4749560, 529804093 ICD Code: W19.XXXA - UNSPECIFIED FALL, INITIAL ENCOUNTER Status: Acute Current Visit: Yes Problem Details: PT/OT recommended home health with services, also to use [facility] which is able to get wet. (3) Generalized weakness SNOMED Code(s): 93627064 ICD Code: R53.1 - WEAKNESS Status: Acute Current Visit: Yes (4) UTI (urinary tract infection) SNOMED Code(s): 95901926 ICD Code: N39.0 - URINARY TRACT INFECTION, SITE NOT SPECIFIED Status: Ruled-out Current Visit: Yes Problem Details: Urine culture had alpha strep which is contaminate, so a false positive. Discontinued Rocephin. (5) Parkinson disease SNOMED Code(s): 03138991 ICD Code: G20 - PARKINSON'S DISEASE Status: Chronic Current Visit: Yes (6) Diabetes SNOMED Code(s): 78946483 ICD Code: E11.9 - TYPE 2 DIABETES MELLITUS WITHOUT COMPLICATIONS Status: Chronic Current Visit: Yes Qualifiers: Diabetes mellitus type: type 2 Diabetes mellitus intermediate teacher insulin use: without intermediate teacher use (7) Incontinence of urine in female SNOMED Code(s): 754964067, 382823724 ICD Code: R32 - UNSPECIFIED URINARY INCONTINENCE Status: Chronic Current Visit: Yes - Patient Summary/Data Consults: Consultations 04/08/20 15:47 PT Evaluation and Treatment [CONS] Routine Please Evaluate and Treat. PT Reason for Consult: Strengthening This query below is only for informational purposes and is not editable. 04/08/20 16:27 OT Evaluation and Treatment [CONS] Routine Please Evaluate and Treat. OT Reason for Consult: ADL's This query below is only for informational purposes and is not editable. Admission Diagnosis/Problem: Acute coronary syndrome Hospital Course: Started on Lisinopril 10 mg, Lovenox 40 mg SQ daily and Nitroglycerin 0.4 SL q5 min as needed chest pain. She never had any chest pain in ER or on the floor. No EKG changes. Troponin came down to 54.3 yesterday. Telemetry showed normal sinus rhythm with rare single PVCs. Suspected UTI on admission, received 2 doses of Rocephin, blood cultures were negative to date, urine culture grew alpha strep so false positive, Rocephin was discontinued today. PT/OT evaluated and recommended home health with services. Lipid panel was good, did not start any statin at this time. Her blood pressures were controlled with Lisinopril 10 mg daily. Will also go home with Aspirin 81 mg since she does have history of falls, including this admission. Family is looking at Assisted living placement for both her and her . - Patient Instructions Diet: Diabetic Diet Activity: As Tolerated Driving: Do Not Drive Showering/Bathing: May Shower Notify Provider of: Fever, Increased Pain, Nausea and/or Vomiting Other/Special Instructions: Follow up with Kai Elder on Apr 17 at 230pm at [facility] after your fall, Acute Coronary syndrome. - Discharge Plan *PRESCRIPTION DRUG MONITORING PROGRAM REVIEWED*: Not Applicable *COPY OF PRESCRIPTION DRUG MONITORING REPORT IN PATIENT ASHLEE: No Prescriptions/Med Rec: Aspirin [Halfprin] 81 mg PO DAILY #30 tab.ec Nitroglycerin [Nitrostat] 0.4 mg SL Q5M PRN #7 tab.sl PRN Reason: Chest Pain lisinopriL [Prinivil] 10 mg PO DAILY 14 Days #14 tablet Home Medications: Home Meds Carbidopa/Levodopa [Carbidopa-Levodopa 25-100 Tab] 1 tab PO TID 02/28/20 [History] Tolterodine Tartrate [Tolterodine Tartrate ER] 2 mg PO DAILY 02/28/20 [History] Acetaminophen [Tylenol] 650 mg PO Q4H PRN tablet 04/10/20 [Rx] Aspirin [Halfprin] 81 mg PO DAILY #30 tab.ec 04/10/20 [Rx] Nitroglycerin [Nitrostat] 0.4 mg SL Q5M PRN #7 tab.sl 04/10/20 [Rx] lisinopriL [Prinivil] 10 mg PO DAILY 14 Days #14 tablet 04/10/20 [Rx] Forms: ED Department Discharge Referrals: Tahmina Phillips, [employer] [Primary Care Provider] - - Discharge Summary/Plan Comment DC Time >30 min.: No - General Info Date of Service: 04/10/20 Subjective Update: Feeling good this morning, no chest pain or shortness of breath. Eating and drinking well. Pain controlled. - Patient Data Vitals - Most Recent: Last Vital Signs Temp 97.8 F 04/10/20 08:00 Pulse 71 04/10/20 08:00 Resp 16 04/10/20 08:00 BP 131/68 04/10/20 09:08 Pulse Ox 96 04/10/20 08:00 Weight - Most Recent: 165 lb 2.02 oz KORI Results - Last 24 hrs: Microbiology 04/08/20 14:50 Aerobic Blood Culture - Preliminary Blood - Venous - Lab Draw NO GROWTH AFTER 1 DAY Anaerobic Blood Culture - Preliminary NO GROWTH AFTER 1 DAY 04/08/20 14:40 Aerobic Blood Culture - Preliminary Blood - Venous NO GROWTH AFTER 1 DAY Anaerobic Blood Culture - Preliminary NO GROWTH AFTER 1 DAY Med Orders - Current: Current Medications Acetaminophen (Tylenol) 650 mg PO Q4H PRN PRN Reason: Pain Last Admin: 04/10/20 00:44 Dose: 650 mg Documented by: Carbidopa/Levodopa (Sinemet 25-100 Mg) 1 tab PO TID [facility] Last Admin: 04/10/20 09:08 Dose: 1 tab Documented by: Enoxaparin Sodium (Lovenox) 40 mg SUBCUT Q24H [facility] Last Admin: 04/09/20 16:28 Dose: 40 mg Documented by: Sodium Chloride (Normal Saline) 1,000 mls @ 999 mls/hr IV ASDIRECTED [facility] Last Admin: 04/08/20 14:59 Dose: 999 mls/hr Documented by: Sodium Chloride (Normal Saline) 1,000 mls @ 100 mls/hr IV ASDIRECTED [facility] Last Admin: 04/09/20 02:29 Dose: 100 mls/hr Documented by: Lisinopril (Prinivil) 10 mg PO DAILY [facility] Last Admin: 04/10/20 09:08 Dose: 10 mg Documented by: Nitroglycerin (Nitrostat) 0.4 mg SL Q5M PRN PRN Reason: Chest Pain Ondansetron HCl (Zofran) 4 mg IVPUSH Q4H PRN PRN Reason: Nausea/Vomiting Senna/Docusate Sodium (Senna Plus) 1 tab PO BID PRN PRN Reason: Constipation Sodium Chloride (Saline Flush) 10 ml FLUSH ASDIRECTED PRN PRN Reason: Keep Vein Open Last Admin: 04/09/20 16:28 Dose: 10 ml Documented by: Tolterodine Tartrate (Detrol La 24 Hr) 2 mg PO DAILY [facility] Last Admin: 04/10/20 09:08 Dose: 2 mg Documented by: Discontinued Medications Aspirin (Aspirin) 324 mg PO ONETIME ONE Stop: 04/08/20 15:38 Last Admin: 04/08/20 15:42 Dose: 324 mg Documented by: Ceftriaxone Sodium (Rocephin) 1 gm IVPUSH Q24H [facility] Last Admin: 04/09/20 16:28 Dose: 1 gm Documented by: Ceftriaxone Sodium 1 gm/ (Sodium Chloride) 50 mls @ 200 mls/hr IV NOW STA Stop: 04/08/20 15:51 Last Admin: 04/08/20 15:45 Dose: 200 mls/hr Documented by: - Exam General: Reports: Alert, Oriented (person, place), Cooperative, No Acute Distress Lungs: Reports: Clear to Auscultation, Normal Respiratory Effort Cardiovascular: Reports: Regular Rate, Regular Rhythm GI/Abdominal Exam: Normal Bowel Sounds, Soft, Non-Tender, No Distention Skin: Reports: Ecchymosis (bilateral elbows, left wrist.) Neurological: Reports: No New Focal Deficit Psy/Mental Status: Reports: Alert, Normal Mood
== END 2020-04-10 11:45 | disposition home health service (06) | DRG 311 ==
LOC: FB.ED 12:18 → FB.MS 15:47
PROVIDERS: ADMIT Emergency Medicine; ATTEND Family Medicine
DX: I24.9 Acute ischemic heart disease, unspecified (principal); N39.0 Urinary tract infection, site not specified; M62.82 Rhabdomyolysis; E78.00 Pure hypercholesterolemia, unspecified; G20 Parkinson's disease; E11.40 Type 2 diabetes mellitus with diabetic neuropathy, unspecified; Z98.49 Cataract extraction status, unspecified eye; Z66 Do not resuscitate; R32 Unspecified urinary incontinence; Z79.82 Long term (current) use of aspirin; Z79.899 Other long term (current) drug therapy; Z20.828 Contact with and (suspected) exposure to other viral communicable diseases; W18.30XA Fall on same level, unspecified, initial encounter; Y92.002 Bathroom of unspecified non-institutional (private) residence as the place of occurrence of the external cause
CPT/HCPCS: 36415; 70450; 71045; 73080; 73502; 80053; 81001; 82550; 83605; 84484 ×2; 85025; 85610; 85730; 87040 ×2; 87086; 93005; 96361; 99285; A9270; J0696; J7030; J7050; U0002; 80048; 80061; 96365; 97161-GP; 97165-GO; J1650

== ENCOUNTER 2020-04-13 07:20 | Emergency (ER) | payer MEDICARE ==
[2020-04-13] MEDS: Aspirin 81 MG Tab.Chew PO ONE (07:43)
--- NOTE | 2020-04-13 08:26 | EDM.PDOC ---
ED HPI GENERAL MEDICAL PROBLEM - General Chief Complaint: Chest Pain Stated Complaint: CHEST PAIN Time Seen by Provider: 04/13/20 07:30 Source of Information: Reports: Patient History Limitations: Reports: No Limitations - History of Present Illness INITIAL COMMENTS - FREE TEXT/NARRATIVE: pt comes in with c/o substernal cheat tightness and burning, denies radiation of this psian , pain started around 4am this morning, no cough, SOB, nausea or any other associated sx or medical concerns, report Hx of similar pain on and of for long time , pt denies any other medical concerns. - Related Data Allergies Allergy/AdvReac Type Severity Reaction Status Date / Time No Known Allergies Allergy Verified 04/13/20 08:17 Home Meds: Home Meds Carbidopa/Levodopa [Carbidopa-Levodopa 25-100 Tab] 1 tab PO TID 02/28/20 [History] Tolterodine Tartrate [Tolterodine Tartrate ER] 2 mg PO DAILY 02/28/20 [History] Acetaminophen [Tylenol] 650 mg PO Q4H PRN tablet 04/10/20 [Rx] Aspirin [Halfprin] 81 mg PO DAILY #30 tab.ec 04/10/20 [Rx] Nitroglycerin [Nitrostat] 0.4 mg SL Q5M PRN #7 tab.sl 04/10/20 [Rx] lisinopriL [Prinivil] 10 mg PO DAILY 14 Days #14 tablet 04/10/20 [Rx] Ciprofloxacin HCl [Cipro] 500 mg PO BID #10 tablet 04/13/20 [Rx] Omeprazole Magnesium [Prilosec] 20 mg PO DAILY #14 suspdr.pkt 04/13/20 [Rx] Past Medical History HEENT History: Reports: Cataract Cardiovascular History: Reports: High Cholesterol Respiratory History: Reports: None Genitourinary History: Reports: None Musculoskeletal History: Reports: Other (See Below) Other Musculoskeletal History: trochanteric bursitis of both hips 09/30/2015 Neurological History: Reports: Neuropathy, Diabetic, Parkinson's Psychiatric History: Reports: None Endocrine/Metabolic History: Reports: Diabetes, Type II Hematologic History: Reports: None Immunologic History: Reports: None Oncologic (Cancer) History: Reports: None Dermatologic History: Reports: None - Past Surgical History Head Surgeries/Procedures: Reports: None HEENT Surgical History: Reports: Cataract Surgery GI Surgical History: Reports: Colonoscopy Social & Family History - Family History Family Medical History: Noncontributory - Tobacco Use Smoking Status *Q: Never Smoker - Caffeine Use Caffeine Use: Reports: None ED ROS GENERAL - Review of Systems Review Of Systems: See Below Constitutional: Reports: No Symptoms. Denies: Fever, Chills, Fatigue Respiratory: Reports: No Symptoms Cardiovascular: Reports: Chest Pain Endocrine: Reports: No Symptoms GI/Abdominal: Reports: No Symptoms : Reports: No Symptoms Musculoskeletal: Reports: No Symptoms Skin: Reports: No Symptoms Neurological: Reports: No Symptoms Psychiatric: Reports: No Symptoms ED EXAM, GENERAL - Physical Exam Exam: See Below Exam Limited By: Other (pt seems to have mild dementia.) General Appearance: Alert, No Apparent Distress. No: Anxious, Mild Distress Eye Exam: Bilateral Eye: Normal Inspection Nose: Normal Inspection Throat/Mouth: Normal Inspection Head: Atraumatic, Normocephalic Neck: Normal Inspection, Supple, Non-Tender Respiratory/Chest: No Respiratory Distress, Lungs Clear, Normal Breath Sounds Cardiovascular: Normal Peripheral Pulses, Regular Rate, Rhythm GI/Abdominal: Normal Bowel Sounds, Soft, Non-Tender Back Exam: Normal Inspection, Full Range of Motion Extremities: Normal Inspection, Normal Range of Motion Neurological: Alert, CN II-XII Intact, Normal Reflexes, No Motor/Sensory Deficits Psychiatric: Flat Affect Course - Vital Signs Text/Narrative:: EKG and cxr shows no acute findings, trop is neg X 2. rest of labs results were explained to pt, pt has UTI , her sx also resolved after gi cocktail. i do not feel here is acute cardiac etiology for her sx, pt likely has reflux disease and she is stable to follow on this issue with PCP. dx.. GERD UTI Chest pain /stable. [place] .. f/u w PCP bhavana may. Last Recorded V/S: Last Vital Signs Temp 36.3 C 04/13/20 07:20 Pulse Resp BP Pulse Ox - Orders/Labs/Meds Orders: Active Orders 24 hr Category Date Time Status EKG Documentation Completion [RC] ASDIRECTED Care 04/13/20 07:26 Active CULTURE URINE [RM] Stat Lab 04/13/20 09:20 Received TROPONIN I [CHEM] Urgent Lab 04/13/20 10:05 Received Sodium Chloride 0.9% [Saline Flush] Med 04/13/20 09:00 Active 10 ml FLUSH ASDIRECTED PRN EKG 12 Lead [EK] Routine Ther 04/13/20 07:26 Ordered Medication Orders Sodium Chloride (Saline Flush) 10 ml FLUSH ASDIRECTED PRN PRN Reason: Keep Vein Open Last Admin: 04/13/20 09:00 Dose: 10 ml Documented by: CONCEPCION Labs: Laboratory Tests 04/13/20 04/13/20 04/13/20 Range/Units 07:50 07:50 07:50 WBC 8.3 (4.5-12.0) X10-3/uL RBC 4.66 (3.23-5.20) x10(6)uL Hgb 13.6 (11.5-15.5) g/dL Hct 41.5 (30.0-51.3) % MCV 89.2 (80-96) fL MCH 29.2 (27.7-33.6) pg MCHC 32.7 (32.2-35.4) g/dL RDW 12.5 (11.5-15.5) % Plt Count 266 (125-369) X10(3)uL MPV 7.4 (7.4-10.4) fL Neut % (Auto) 66.3 (46-82) % Lymph % (Auto) 23.0 (13-37) % Hand % (Auto) 6.7 (4-12) % Eos % (Auto) 3 (1.0-5.0) % Baso % (Auto) 1 (0-2) % Neut # (Auto) 5.5 (1.6-8.3) # Lymph # (Auto) 1.9 (0.6-5.0) # Hand # (Auto) 0.6 (0.0-1.3) # Eos # (Auto) 0.3 (0.0-0.8) # Baso # (Auto) 0.0 (0.0-0.2) # Sodium 139 (135-145) mmol/L Potassium 4.2 (3.5-5.3) mmol/L Chloride 102 (100-110) mmol/L Carbon Dioxide 29 (21-32) mmol/L BUN 12 (7-18) mg/dL Creatinine 0.9 (0.55-1.02) mg/dL Est Cr Clr Drug Dosing TNP Estimated GFR (MDRD) 60 (>60) BUN/Creatinine Ratio 13.3 (9-20) Glucose 187 H (80-116) mg/dL Calcium 9.1 (8.6-10.2) mg/dL Total Bilirubin 0.6 (0.1-1.3) mg/dL AST 36 H D (5-25) IU/L ALT 57 H D (12-36) U/L Alkaline Phosphatase 101 (56-112) IU/L Troponin I 10.8 (4.0-60.3) pg/mL Total Protein 6.6 (6.0-8.0) g/dL Albumin 3.4 (3.2-4.6) g/dL Globulin 3.2 g/dL Albumin/Globulin Ratio 1.1 Urine Color (YELLOW) Urine Appearance (CLEAR) Urine pH (5.0-6.5) Ur Specific [place] (1.010-1.025) Urine Protein (NEGATIVE) mg/dL Urine Glucose (UA) (NORMAL) mg/dL Urine Ketones (NEGATIVE) mg/dL Urine Occult Blood (NEGATIVE) Urine Nitrite (NEGATIVE) Urine Bilirubin (NEGATIVE) Urine Urobilinogen (NEGATIVE) mg/dL Ur Leukocyte Esterase (NEGATIVE) Urine WBC (0-5) Ur Squamous Epith Cells (NS,R,O) Urine Bacteria (NS) 04/13/20 Range/Units 09:20 WBC (4.5-12.0) X10-3/uL RBC (3.23-5.20) x10(6)uL Hgb (11.5-15.5) g/dL Hct (30.0-51.3) % MCV (80-96) fL MCH (27.7-33.6) pg MCHC (32.2-35.4) g/dL RDW (11.5-15.5) % Plt Count (125-369) X10(3)uL MPV (7.4-10.4) fL Neut % (Auto) (46-82) % Lymph % (Auto) (13-37) % Hand % (Auto) (4-12) % Eos % (Auto) (1.0-5.0) % Baso % (Auto) (0-2) % Neut # (Auto) (1.6-8.3) # Lymph # (Auto) (0.6-5.0) # Hand # (Auto) (0.0-1.3) # Eos # (Auto) (0.0-0.8) # Baso # (Auto) (0.0-0.2) # Sodium (135-145) mmol/L Potassium (3.5-5.3) mmol/L Chloride (100-110) mmol/L Carbon Dioxide (21-32) mmol/L BUN (7-18) mg/dL Creatinine (0.55-1.02) mg/dL Est Cr Clr Drug Dosing Estimated GFR (MDRD) (>60) BUN/Creatinine Ratio (9-20) Glucose (80-116) mg/dL Calcium (8.6-10.2) mg/dL Total Bilirubin (0.1-1.3) mg/dL AST (5-25) IU/L ALT (12-36) U/L Alkaline Phosphatase (56-112) IU/L Troponin I (4.0-60.3) pg/mL Total Protein (6.0-8.0) g/dL Albumin (3.2-4.6) g/dL Globulin g/dL Albumin/Globulin Ratio Urine Color Yellow (YELLOW) Urine Appearance Slightly cloudy (CLEAR) Urine pH 7.0 H (5.0-6.5) Ur Specific [place] 1.010 (1.010-1.025) Urine Protein Negative (NEGATIVE) mg/dL Urine Glucose (UA) Normal (NORMAL) mg/dL Urine Ketones Negative (NEGATIVE) mg/dL Urine Occult Blood Negative (NEGATIVE) Urine Nitrite Negative (NEGATIVE) Urine Bilirubin Negative (NEGATIVE) Urine Urobilinogen Normal (NEGATIVE) mg/dL Ur Leukocyte Esterase Large H (NEGATIVE) Urine WBC 30-40 H (0-5) Ur Squamous Epith Cells Few H (NS,R,O) Urine Bacteria Many H (NS) Meds: Medications Generic Name Dose Route Start Last Admin Trade Name Freq PRN Reason Stop Dose Admin Sodium Chloride 10 ml 04/13/20 09:00 04/13/20 09:00 Saline Flush FLUSH 10 ml ASDIRECTED PRN Administration Keep Vein Open Discontinued Medications Generic Name Dose Route Start Last Admin Trade Name Freq PRN Reason Stop Dose Admin Aspirin 81 mg 04/13/20 07:39 04/13/20 07:43 Aspirin PO 04/13/20 07:40 81 mg ONETIME ONE Administration Al Hydroxide/Mg Hydroxide 15 0 ml 04/13/20 08:27 04/13/20 08:52 ml/ Lidocaine HCl 15 ml PO 04/13/20 08:28 15 ml ONETIME ONE Administration Labetalol HCl 10 mg 04/13/20 08:27 04/13/20 08:58 Normodyne IVPUSH 04/13/20 08:28 10 mg ONETIME ONE Administration Protocol Departure - Departure Time of Disposition: 10:33 Disposition: Home, Self-Care 01 Clinical Impression: UTI (urinary tract infection) - Discharge Information Referrals: Tahmina Phillips, REGISTRATION REPRESENTATIVE [Primary Care Provider] - Forms: ED Department Discharge Sepsis Event Note (ED) - Focused Exam Vital Signs: Vital Signs Temp 04/13/20 07:20 36.3 C - My Orders Last 24 Hours: My Active Orders 04/13/20 07:26 EKG Documentation Completion [RC] ASDIRECTED EKG 12 Lead [EK] Routine 04/13/20 09:00 Sodium Chloride 0.9% [Saline Flush] 10 ml FLUSH ASDIRECTED PRN 04/13/20 09:20 CULTURE URINE [RM] Stat 04/13/20 10:05 TROPONIN I [CHEM] Urgent - Assessment/Plan Last 24 Hours: My Active Orders 04/13/20 07:26 EKG Documentation Completion [RC] ASDIRECTED EKG 12 Lead [EK] Routine 04/13/20 09:00 Sodium Chloride 0.9% [Saline Flush] 10 ml FLUSH ASDIRECTED PRN 04/13/20 09:20 CULTURE URINE [RM] Stat 04/13/20 10:05 TROPONIN I [CHEM] Urgent
[2020-04-13] MEDS: Alum Hydroxide/Mag Hydroxide 15 ML, Lidocaine 2% 15 ML PO ONE ×2 (08:52)
[2020-04-13] MEDS: Labetalol 20 MG/4 ML Syringe IVPUSH ONE (08:58)
[2020-04-13] MEDS: Sodium Chloride 0.9% 10 ML Syringe FLUSH PRN (09:00)
--- NOTE | 2020-04-13 10:24 | CR ---
INDICATION: Chest pain. CHEST, ONE VIEW: An AP upright view of the chest was obtained 04/13/20 and compared with 04/08/20 revealing no definite interval change or definite acute process. The heart did not appear enlarged. The aorta is tortuous as previously with calcification in the arch. Overlying EKG leads are noted. A definite active infiltrate or effusion was not identified. However, there is mild bronchial wall cuffing at the lung bases, which could be on the basis of active peribronchial disease, and should be correlated clinically. MTDD
== END 2020-04-13 11:05 | disposition home or self-care (01) ==
LOC: SUPCPDRO 07:20 → FB.ED 07:20
DX: N39.0 Urinary tract infection, site not specified (principal); E11.40 Type 2 diabetes mellitus with diabetic neuropathy, unspecified; G20 Parkinson's disease; Z79.82 Long term (current) use of aspirin; Z79.899 Other long term (current) drug therapy
CPT/HCPCS: 36415; 71045; 80053; 81001; 84484; 85025; 87086; 87088; 87186; 93005; 96374; 99285-25; A9270-GY; J3490